=== PATIENT | male | born 1930 | race Caucasian/White ===

== ENCOUNTER → 2016-10-08 | Outpatient (REF) | payer OTHER ==
[~2016-10-08] MED LIST: *BLDWK2; *BLDWK8; *CXR; /MOXI40TA; ALBUTEROL INHALATION; ALLO100T; ALLOPUR100 PO; AMIO10TA; AMO500 PO; ASPI81TA3; ASPI81TA85 PO; ATEN25TA; ATENOL25 PO; COZAAR PO; COZAAR25 PO; DARVON-N1 PO; DIOVAN80 PO; DONETAB5 PO; DOXYCYC100; DOXYCYC100 PO; FLOMAX 0.4 PO; FURO1TAB15 PO; FUROSEM PO; K-TA1TAB PO; KEFLEX500; KLORCON20 PO; LACT10SO PO; LASI80TA; LASIX40 PO; LIPI20TA; LIPITOR10; LIPITOR40; NAME10TA PO; NITR0.4S; NITROSTAT4 SL; NYST10PW TOP; POTA20TA2; PROS5TAB; PROSCAR5 PO; RANITIDINE; RHINOAEROS NOSTRIL; SERT-138 PO; SIMV40TA2 PO; TEMOVATECR TOPICAL; TESSALO100 PO; TUSSI12TAB; TUSSIONEX; TYLE325T5 PO; ULTRAM50 PO; VALS80CA; VIAGRA50 PO; VITAMIN B 12; VITAMINB12 INJ; ZOCO40TA; ZOCOR40 PO; [UNRECOGNIZED DRUG - CODE] SUBQ; [UNRECOGNIZED DRUG - OTHER]; [UNRECOGNIZED DRUG - OTHER]; [UNRECOGNIZED DRUG - OTHER] SQ; [UNRECOGNIZED DRUG - OTHER] TOPICALLY
[2016-10-08 18:45] LABS: BASO % 0.5 % (0.0-1.0); EOS # 0.4 K/mm3 (0.0-0.50); EOS % 5.5 % (0.0-3.0); LARGE UNSTAINED CELL # 0.4 K/mm3 (0.0-0.4); LYMPH # 1.3 K/mm3 (1.5-4.5); LYMPH % 20.2 % (24.0-44.0); MEAN CORPUSCULAR HEMOGLOBIN 31.8 pg (27.0-33.0); MEAN CORPUSCULAR HGB CONC 32.6 g/dl (32.0-36.5); MEAN CORPUSCULAR VOLUME 97.5 fl (80.0-96.0); MONO # 0.5 K/mm3 (0.0-0.8); MONO % 7.9 % (0.0-5.0); NEUTROPHILS # 3.9 K/mm3 (1.8-7.7); NEUTROPHILS % 59.8 % (36.0-66.0); PLATELET COUNT, AUTOMATED 170 k/mm3 (150-450); RED CELL DISTRIBUTION WIDTH 12.5 % (11.5-14.5); WHITE BLOOD COUNT 6.5 K/mm3 (4.0-10.0)
[2016-10-08 18:56] LABS: FOLATE > 24.0 NG/ML (>5.4); VITAMIN B12 LEVEL 288 PG/ML (247-911)
== END ==
LOC: M LABNEURO 16:58
PROVIDERS: ATTEND Physician Assistant Medical
DX: R41.3 Other amnesia (principal); R41.0 Disorientation, unspecified

== ENCOUNTER → 2016-10-22 | Outpatient (CLI) | payer OTHER ==
--- NOTE | 2016-10-22 12:15 | REP ---
CT BRAIN WITHOUT CONTRAST: 10/22/2016 COMPARISON: 08/14/2015, 11/14/2013. CLINICAL HISTORY: Dementia. Confusion. Peripheral vascular disease. Pedicles are midline symmetric and dilated for those lateral ventricles. The third and fourth ventricles also prominent. There is extensive diffuse cerebral and cerebellar atrophy. Chronic small vessel white matter ischemic disease of aging noted. Anterior falcine calcifications are seen. There is an old lacunar infarct in the putamen of the left basal ganglia. I suspect a small lacunar infarct in the right thalamus inferiorly as well. No intra or extra-axial hemorrhage, mass or mass effect. No acute infarct. Brainstem and cerebellum show atrophy without hemorrhage or mass. Basal cisterns intact. Mastoids and sinuses are clear. There are few anterior ethmoid sinuses with mucosal thickening with the frontal and sphenoid sinuses clear. No fracture of the skull base or calvarium nor focal bone lesion. Advanced atherosclerotic calcifications in the carotid siphons. IMPRESSION: 1. Advanced diffuse atrophy with ventricular dilatation in proportion and with chronic small vessel ischemic changes throughout. No acute infarct, hemorrhage, mass or mass effect. 2. Vascular calcifications carotid siphons. Visualized sinuses show only minor ethmoid sinus mucosal thickening with the calvarium, skull base and mastoids intact. Signed by Tyron Miranda MD 10/22/2016 05:06 P
== END ==
LOC: M RAD 11:11
PROVIDERS: ATTEND Physician Assistant Medical
DX: I73.89 Other specified peripheral vascular diseases (principal); F02.80 Dementia in other diseases classified elsewhere, unspecified severity, without behavioral disturbance, psychotic disturbance, mood disturbance, and anxiety; G47.51 Confusional arousals; I67.82 Cerebral ischemia; G31.9 Degenerative disease of nervous system, unspecified

== ENCOUNTER 2016-11-04 08:49 | Emergency (ER) | payer OTHER ==
[2016-11-04] MEDS ORDERED: ACETAMINOPHEN 325 MG TAB As Ordered ONE ×2 (09:31→09:34)
[2016-11-04] MEDS ORDERED: ADACEL/BOOSTRIX VACCINE (DIPHTH/PERTUSS/ACELL/TETANUS)0.5ML SYR (90715) As Ordered ONE (09:32)
--- NOTE | 2016-11-04 10:23 | REP ---
CT HEAD WITHOUT CONTRAST: HISTORY: Head injury. COMPARISON: 10/22/2016. An area of decreased attentuation is present in the left basal ganglia. This represents an old lacunar infarction. Areas of decreased attentuation are present in the periventricular and subcortical white matter. This represents small vessel ischemic disease. There is no intraparenchymal hemorrhage, mass, or midline shift. The ventricular system and cortical sulci as well as subarachnoid space in the posterior fossa are dilated consistent with moderate volume loss. There is no extracerebral collection. There is no fracture. Minimal mucosal thickening is present in the left ethmoid sinus. IMPRESSION: 1. Old left basal ganglia lacunar infarction. 2. Small vessel ischemic disease. 3. Moderate volume loss. Signed by Lev Hebert MD 11/04/2016 10:29 A
--- NOTE | 2016-11-04 10:26 | REP ---
CT CERVICAL SPINE WITHOUT CONTRAST: HISTORY: Injury. There is no acute fracture. Disc bulges with associated osteophyte formation are present at the C3-4 through C6-7 levels. There are 2 mm of anterior subluxation of C6 on 7. There is minimal narrowing of the spinal canal. Uncinate process and/or facet hypertrophy are present at the C2-3 through C6-7 levels. These findings produce minimal to moderate narrowing of the neural foramina. The C2-3 through C7-T1 intervertebral discs are decreased in height consistent with disc degeneration. Anterior osteophytes are present throughout the cervical spine. IMPRESSION: 1. There is no acute fracture. 2. There is cervical spondylosis at the C1-2 through C7-T1 levels. Signed by Lev Hebert MD 11/04/2016 10:29 A
--- NOTE | 2016-11-04 10:48 | EDDOCDS ---
Physician Documentation [facility] Name: Germain Allen Age: 86 yrs Sex: Male : 1930 Arrival Date: 11/04/2016 Time: 08:49 Bed PD Private MD: Zechariah Tidwell Disposition: 11/04/16 10:16 Discharged to Home/Self Care. Impression: Fall from or off toilet, Superficial injury of head, Abrasion of scalp. - Condition is Stable. - Discharge Instructions: Abrasion, Fall Prevention and Home Safety. - Medication Reconciliation, Local Pharmacy Hours form. - Follow up: Emergency Department; When: As needed; Reason: Worsening of conditions. Follow up: Private Physician; When: 1 - 2 days; Reason: Wound/Symptom Recheck, Recheck today's complaints, Continuance of care. - Problem is new. - Symptoms are unchanged. - Notes: YOUR CT SCANS DID NOT SHOW ANY ACUTE INJURIES OR FRACTURES TODAY. PLEASE FOLLOW UP WITH YOUR PRIMARY CARE PROVIDER IN THE NEXT 1-2 DAYS TO RECHECK YOUR SYMPTOMS. YOU MAY TAKE TYLENOL DIRECTED FOR YOUR PAIN. RETURN TO THE ER WITH ANY WORSENING SYMPTOMS. Historical: - Allergies: no known allergies; - Home Meds: 1. furosemide 80 mg Oral tab 1 tab once daily 2. sertraline 100 mg oral tab 1 tab once daily 3. memantine 10 mg oral tab 1 tab 2 times per day 4. potassium chloride 20 mEq Oral TbER once daily 5. aspirin 81 mg Oral cpDR daily 6. simvastatin 40 mg Oral tab 1 tab in pm 7. donepezil 10 mg oral tab once daily 8. nitroglycerin 0.4 mg SL subl 1 tab every 5 minutes as needed 9. Doc-Q-Lax oral 1 tabs nightly - PMHx: Atrial Fib; CAD; CHF; Dementia; Gout; Hypercholesterolemia; - PSHx: CABG; FAVIO Knee Replacement; Pacemaker Insertion; - Social history: Smoking status: Patient states former smoker of tobacco. No barriers to communication noted, The patient speaks fluent Chinese, Speaks appropriately for age. - Family history: Not pertinent. - : The pt / caregiver states he / she is not on anticoagulants. Home medication list is obtained from the patient, family members. - Exposure Risk Screening:: None identified. Vital Signs: 11/04 09:04 BP 125 / 62; Pulse 60; Resp 16; Temp 97.2(TE); Pulse Ox 98% on R/A; Weight 89.81 kg / mlb1 198 lbs (R); Height 5 ft. 6 in. (167.64 cm) (R); Pain 10/10; 10:46 BP 163 / 82; Pulse 60; Resp 16; Temp 97.2(T); Pulse Ox 98% on R/A; Pain 6/10; mlb1 09:04 Body Mass Index 31.96 (89.81 kg, 167.64 cm) mlb1 MDM: 09:29 Tetanus- Diptheria-Acellular Pertussis 0.5 ml IM once; Routine booster 10-64yrs, >64 dt4 with child contact Fay Omnicell ordered. 09:29 Acetaminophen Tablet 650 mg PO once ordered. dt4 09:29 CT Head Without Contrast Ordered. EDMS 09:30 CT Spine,Cervical W/o Contrast Ordered. EDMS 09:49 Financial registration complete. mm15 09:53 [facility] Payment Agreement was scanned into [employer] and attached to record. mm15 Administered Medications: 09:36 Drug: Acetaminophen 650 mg [acetaminophen 325 mg tablet (2 tabs)] Route: PO; mlb1 09:57 Drug: Tetanus- Diptheria-Acellular Pertussis 0.5 ml [diphth,pertussis(acel),tetanus 2.5 mlb1 Lf unit-8 mcg-5 Lf/0.5mL IM syringe (0.5 mL)] {Belt Line Feeder: [employer]. Exp: 11/05/2018. Lot #: [id number]. } Route: IM; Site: left deltoid; Signatures: Dispatcher [employer] EDRaúl Tavarez RN RN mlb1 Nick Samuels mm15 Sirisha Obrien PA-C PAMichael dt4 The chart was reviewed and I authenticate all verbal orders and agree with the evaluation and treatment provided.Attachments: 09:53 [facility] Payment Agreement mm15 MTDD
--- NOTE | 2016-11-04 10:48 | EDDOCDS ---
Nurse's Notes [facility] Name: Germain Allen Age: 86 yrs Sex: Male : 1930 Arrival Date: 11/04/2016 Time: 08:49 Bed PD Private MD: Zechariah Tidwell Diagnosis: Fall from or off toilet;Superficial injury of head;Abrasion of scalp Presentation: 11/04 08:59 Presenting complaint: Patient states: States fell asleep and fell while on the toilet mlb1 yesterday hitting head against the wall c/o head and neck pain states pain "everywhere". Adult Sepsis Screening: The patient does not have new or worsening altered mentation. Patient's respiratory rate is less than 22. Systolic blood pressure is greater than 100. Patient has a qSOFA score of 0- Negative Sepsis Screen. Suicide/Homicide risk assessment- the patient denies having any suicidal and/or homicidal ideations and does not present with any other emotional, behavioral or mental health complaints. Status: Patient is not a emergency services director or dependent. Transition of care: patient was not received from another setting of care. 08:59 Acuity: AFIA Level 4 mlb1 08:59 Method Of Arrival: Walkin/Carried/Asstd mlb1 Triage Assessment: 09:03 General: Appears in no apparent distress, Behavior is anxious, cooperative. Pain: mlb1 Location: occiput, left mid cervical area and right mid cervical area Pain currently is 10 out of 10 on a pain scale. Neurological: Level of Consciousness is awake, alert, Oriented to person, place, time. Historical: - Allergies: no known allergies; - Home Meds: 1. furosemide 80 mg Oral tab 1 tab once daily 2. sertraline 100 mg oral tab 1 tab once daily 3. memantine 10 mg oral tab 1 tab 2 times per day 4. potassium chloride 20 mEq Oral TbER once daily 5. aspirin 81 mg Oral cpDR daily 6. simvastatin 40 mg Oral tab 1 tab in pm 7. donepezil 10 mg oral tab once daily 8. nitroglycerin 0.4 mg SL subl 1 tab every 5 minutes as needed 9. Doc-Q-Lax oral 1 tabs nightly - PMHx: Atrial Fib; CAD; CHF; Dementia; Gout; Hypercholesterolemia; - PSHx: CABG; FAVIO Knee Replacement; Pacemaker Insertion; - Social history: Smoking status: Patient states former smoker of tobacco. No barriers to communication noted, The patient speaks fluent Tuvaluan, Speaks appropriately for age. - Family history: Not pertinent. - : The pt / caregiver states he / she is not on anticoagulants. Home medication list is obtained from the patient, family members. - Exposure Risk Screening:: None identified. Screenin:02 Screening information is obtained from the patient. Fall risk: At risk due to age, The mlb1 following interventions are performed due to a positive Fall Risk Screen: Fall Risk is added to Special Handling on the patient Summary Screen. A Fall Risk Bracelet was applied to the patient. Side Rails are placed in the up position. A Call Bautista is given with instruction to call for help when getting out of bed. Fall Alert bracelet is placed on the patient. Assistance ADL's: requires no assistance with activities of daily living. Abuse/DV Screen: The patient / caregiver reports he/she is: not in a situation that causes fear, pain or injury. Nutritional screening: No deficits noted. Advance Directives: There is no active DNR order. home support is adequate. Assessment: 10:03 General: Appears in no apparent distress, Behavior is anxious, appropriate for age, mlb1 cooperative. Pain: Location: right mid cervical area and left mid cervical area and occiput Pain currently is 10 out of 10 on a pain scale. Neurological: Level of Consciousness is awake, alert, Oriented to person, place, time. Musculoskeletal: Circulation, motion, and sensation intact Range of motion intact in all extremities. 10:46 General: Appears in no apparent distress, Behavior is appropriate for age, cooperative. mlb1 Pain: Location: right mid cervical area and left mid cervical area and occiput and back of neck Pain currently is 6 out of 10 on a pain scale. Neurological: No deficits noted. Respiratory: No deficits noted. Musculoskeletal: No deficits noted. Vital Signs: 09:04 BP 125 / 62; Pulse 60; Resp 16; Temp 97.2(TE); Pulse Ox 98% on R/A; Weight 89.81 kg mlb1 (R); Height 5 ft. 6 in. (167.64 cm) (R); Pain 10/10; 10:46 BP 163 / 82; Pulse 60; Resp 16; Temp 97.2(T); Pulse Ox 98% on R/A; Pain 6/10; mlb1 09:04 Body Mass Index 31.96 (89.81 kg, 167.64 cm) mlb1 Vitals: 09:04 Log In Time: November 04, 2016 at 08:47. mlb1 ED Course: 08:50 Patient visited by Nick Samuels. mm15 08:50 Patient moved to Waiting mm15 08:51 Zechariah Tidwell MD is Private Physician. mm15 08:58 Patient visited by Raúl Whitney RN. mlb1 09:00 Triage Initiated mlb1 09:03 Patient moved to Triage 1 ttb 09:05 Patient visited by Raúl Whitney, BLANCA. mlb1 09:14 Sir[facility] Obrien [facility]. dt4 09:14 Bandar Brush MD is Attending Physician. dt4 09:14 Patient visited by Sirisha Obrien PA-C. dt4 09:27 Patient moved to PD mlb1 09:53 [facility] Payment Agreement was scanned into [employer] and attached to record. mm15 10:03 Patient visited by Raúl Whitney RN. mlb1 10:03 No procedures done that require assistance. mlb1 10:47 Patient visited by Raúl Whitney RN. mlb1 10:47 The patient / caregiver is instructed regarding the plan of care and ED course. mlb1 10:47 No IV's were initiated during this patient's visit. mlb1 Administered Medications: 09:36 Drug: Acetaminophen 650 mg [acetaminophen 325 mg tablet (2 tabs)] Route: PO; mlb1 09:57 Drug: Tetanus- Diptheria-Acellular Pertussis 0.5 ml [diphth,pertussis(acel),tetanus 2.5 mlb1 Lf unit-8 mcg-5 Lf/0.5mL IM syringe (0.5 mL)] {Financial Analyst: [employer]. Exp: 11/05/2018. Lot #: [id number]. } Route: IM; Site: left deltoid; Order Results: There are currently no results for this order. Outcome: 10:02 CT Study completed. mlb1 10:16 Discharge ordered by Provider. dt4 10:46 Discharge Assessment: Patient awake, alert and oriented x 3. No cognitive and/or mlb1 functional deficits noted. Patient verbalized understanding of disposition instructions. patient administered narcotics - no. The following High Risk Discharge criteria are identified: None. Discharged to home ambulatory. Condition: good. Discharge instructions given to patient, Instructed on discharge instructions, follow up and referral plans. medication usage, Demonstrated understanding of instructions, medications, Pt was receptive of discharge instructions/ teaching. Property sent home with patient. 10:47 Patient left the ED. mlb1 Signatures: Raúl Whitney RN RN mlb1 Effie Cline RN RN ttb Nick Samuels mm15 Sirisha Obrien PA-Niki PA-C dt4 MTDD
--- NOTE | 2016-11-06 11:48 | EDDOCDS ---
Nurse's Notes [facility] Name: Germain Allen Age: 86 yrs Sex: Male : 1930 Arrival Date: 11/04/2016 Time: 08:49 Bed PD Private MD: Zechariah Tidwell Diagnosis: Fall from or off toilet;Superficial injury of head;Abrasion of scalp Presentation: 11/04 08:59 Presenting complaint: Patient states: States fell asleep and fell while on the toilet mlb1 yesterday hitting head against the wall c/o head and neck pain states pain "everywhere". Adult Sepsis Screening: The patient does not have new or worsening altered mentation. Patient's respiratory rate is less than 22. Systolic blood pressure is greater than 100. Patient has a qSOFA score of 0- Negative Sepsis Screen. Suicide/Homicide risk assessment- the patient denies having any suicidal and/or homicidal ideations and does not present with any other emotional, behavioral or mental health complaints. Status: Patient is not a corporate services manager or dependent. Transition of care: patient was not received from another setting of care. 08:59 Acuity: AFIA Level 4 mlb1 08:59 Method Of Arrival: Walkin/Carried/Asstd mlb1 Triage Assessment: 09:03 General: Appears in no apparent distress, Behavior is anxious, cooperative. Pain: mlb1 Location: occiput, left mid cervical area and right mid cervical area Pain currently is 10 out of 10 on a pain scale. Neurological: Level of Consciousness is awake, alert, Oriented to person, place, time. Historical: - Allergies: no known allergies; - Home Meds: 1. furosemide 80 mg Oral tab 1 tab once daily 2. sertraline 100 mg oral tab 1 tab once daily 3. memantine 10 mg oral tab 1 tab 2 times per day 4. potassium chloride 20 mEq Oral TbER once daily 5. aspirin 81 mg Oral cpDR daily 6. simvastatin 40 mg Oral tab 1 tab in pm 7. donepezil 10 mg oral tab once daily 8. nitroglycerin 0.4 mg SL subl 1 tab every 5 minutes as needed 9. Doc-Q-Lax oral 1 tabs nightly - PMHx: Atrial Fib; CAD; CHF; Dementia; Gout; Hypercholesterolemia; - PSHx: CABG; FAVIO Knee Replacement; Pacemaker Insertion; - Social history: Smoking status: Patient states former smoker of tobacco. No barriers to communication noted, The patient speaks fluent Montenegrin, Speaks appropriately for age. - Family history: Not pertinent. - : The pt / caregiver states he / she is not on anticoagulants. Home medication list is obtained from the patient, family members. - Exposure Risk Screening:: None identified. Screenin:02 Screening information is obtained from the patient. Fall risk: At risk due to age, The mlb1 following interventions are performed due to a positive Fall Risk Screen: Fall Risk is added to Special Handling on the patient Summary Screen. A Fall Risk Bracelet was applied to the patient. Side Rails are placed in the up position. A Call Bautista is given with instruction to call for help when getting out of bed. Fall Alert bracelet is placed on the patient. Assistance ADL's: requires no assistance with activities of daily living. Abuse/DV Screen: The patient / caregiver reports he/she is: not in a situation that causes fear, pain or injury. Nutritional screening: No deficits noted. Advance Directives: There is no active DNR order. home support is adequate. Assessment: 10:03 General: Appears in no apparent distress, Behavior is anxious, appropriate for age, mlb1 cooperative. Pain: Location: right mid cervical area and left mid cervical area and occiput Pain currently is 10 out of 10 on a pain scale. Neurological: Level of Consciousness is awake, alert, Oriented to person, place, time. Musculoskeletal: Circulation, motion, and sensation intact Range of motion intact in all extremities. 10:46 General: Appears in no apparent distress, Behavior is appropriate for age, cooperative. mlb1 Pain: Location: right mid cervical area and left mid cervical area and occiput and back of neck Pain currently is 6 out of 10 on a pain scale. Neurological: No deficits noted. Respiratory: No deficits noted. Musculoskeletal: No deficits noted. Vital Signs: 09:04 BP 125 / 62; Pulse 60; Resp 16; Temp 97.2(TE); Pulse Ox 98% on R/A; Weight 89.81 kg mlb1 (R); Height 5 ft. 6 in. (167.64 cm) (R); Pain 10/10; 10:46 BP 163 / 82; Pulse 60; Resp 16; Temp 97.2(T); Pulse Ox 98% on R/A; Pain 6/10; mlb1 09:04 Body Mass Index 31.96 (89.81 kg, 167.64 cm) mlb1 Vitals: 09:04 Log In Time: November 04, 2016 at 08:47. mlb1 ED Course: 08:50 Patient visited by Nick Samuels. mm15 08:50 Patient moved to Waiting mm15 08:51 Zechariah Tidwell MD is Private Physician. mm15 08:58 Patient visited by Raúl Whitney, BLANCA. mlb1 09:00 Triage Initiated mlb1 09:03 Patient moved to Triage 1 ttb 09:05 Patient visited by Raúl Whitney, BLANCA. mlb1 09:14 Sirisha Obrien PA-C is [facility]. dt4 09:14 Bandar Brush MD is Attending Physician. dt4 09:14 Patient visited by Sirisha Obrien PA-C. dt4 09:27 Patient moved to PD mlb1 09:53 [facility] Payment Agreement was scanned into [employer] and attached to record. mm15 10:03 Patient visited by Raúl Whitney, BLANCA. mlb1 10:03 No procedures done that require assistance. mlb1 10:47 Patient visited by Raúl Whitney RN. mlb1 10:47 The patient / caregiver is instructed regarding the plan of care and ED course. mlb1 10:47 No IV's were initiated during this patient's visit. mlb1 10:49 CT Head Without Contrast Returned. EDMS 10:49 CT Spine,Cervical W/o Contrast Returned. EDMS 12:45 T-Sheet-- Draft Copy was scanned into [employer] and attached to record. klr 15:20 Radiology Report was scanned into [employer] and attached to record. gb Administered Medications: 09:36 Drug: Acetaminophen 650 mg [acetaminophen 325 mg tablet (2 tabs)] Route: PO; mlb1 09:57 Drug: Tetanus- Diptheria-Acellular Pertussis 0.5 ml [diphth,pertussis(acel),tetanus 2.5 mlb1 Lf unit-8 mcg-5 Lf/0.5mL IM syringe (0.5 mL)] {Manager Community Development: [employer]. Exp: 11/05/2018. Lot #: [id number]. } Route: IM; Site: left deltoid; Order Results: Radiology Order: CT Head Without Contrast Test: CT Head Without Contrast REASON FOR EXAMINATION: fall, head injury; CT HEAD WITHOUT CONTRAST:; ; HISTORY: Head injury.; ; COMPARISON: 10/22/2016.; ; An area of decreased attentuation is present in the left basal ganglia. This; represents an old lacunar infarction. Areas of decreased attentuation are; present in the periventricular and subcortical white matter. This represents; small vessel ischemic disease. There is no intraparenchymal hemorrhage, mass, or; midline shift. The ventricular system and cortical sulci as well as subarachnoid; space in the posterior fossa are dilated consistent with moderate volume loss.; There is no extracerebral collection. There is no fracture. Minimal mucosal; thickening is present in the left ethmoid sinus.; ; IMPRESSION:; ; 1. Old left basal ganglia lacunar infarction.; ; 2. Small vessel ischemic disease.; ; 3. Moderate volume loss.; ; ; Signed by; Lev Hebert MD 11/04/2016 10:29 A; Radiology Order: CT Spine,Cervical W/o Contrast Test: CT Spine,Cervical W/o Contrast REASON FOR EXAMINATION: fall, head/neck injury; CT CERVICAL SPINE WITHOUT CONTRAST:; ; HISTORY: Injury.; ; There is no acute fracture. Disc bulges with associated osteophyte formation are; present at the C3-4 through C6-7 levels. There are 2 mm of anterior subluxation; of C6 on 7. There is minimal narrowing of the spinal canal. Uncinate process; and/or facet hypertrophy are present at the C2-3 through C6-7 levels. These; findings produce minimal to moderate narrowing of the neural foramina. The C2-3; through C7-T1 intervertebral discs are decreased in height consistent with disc; degeneration. Anterior osteophytes are present throughout the cervical spine.; ; IMPRESSION:; ; 1. There is no acute fracture.; ; 2. There is cervical spondylosis at the C1-2 through C7-T1 levels.; ; ; Signed by; Lev Hebert MD 11/04/2016 10:29 A; Outcome: 10:02 CT Study completed. mlb1 10:16 Discharge ordered by Provider. dt4 10:46 Discharge Assessment: Patient awake, alert and oriented x 3. No cognitive and/or mlb1 functional deficits noted. Patient verbalized understanding of disposition instructions. patient administered narcotics - no. The following High Risk Discharge criteria are identified: None. Discharged to home ambulatory. Condition: good. Discharge instructions given to patient, Instructed on discharge instructions, follow up and referral plans. medication usage, Demonstrated understanding of instructions, medications, Pt was receptive of discharge instructions/ teaching. Property sent home with patient. 10:47 Patient left the ED. mlb1 Signatures: Dispatcher [employer] EDIA Annemarie Chavez, Reg Reg gb Raúl Whitney RN RN mlb1 Effie Cline RN RN Nick Robledo mm15 Sirisha Obrien PA-C PA-C dt4 Arcelia Acuña Chart Complete HOLLI
--- NOTE | 2016-11-06 11:48 | EDDOCDS ---
Physician Documentation [facility] Name: Germain Allen Age: 86 yrs Sex: Male : 1930 Arrival Date: 11/04/2016 Time: 08:49 Bed PD Private MD: Zechariah Tidwell Disposition: 11/04/16 10:16 Discharged to Home/Self Care. Impression: Fall from or off toilet, Superficial injury of head, Abrasion of scalp. - Condition is Stable. - Discharge Instructions: Abrasion, Fall Prevention and Home Safety. - Medication Reconciliation, Local Pharmacy Hours form. - Follow up: Emergency Department; When: As needed; Reason: Worsening of conditions. Follow up: Private Physician; When: 1 - 2 days; Reason: Wound/Symptom Recheck, Recheck today's complaints, Continuance of care. - Problem is new. - Symptoms are unchanged. - Notes: YOUR CT SCANS DID NOT SHOW ANY ACUTE INJURIES OR FRACTURES TODAY. PLEASE FOLLOW UP WITH YOUR PRIMARY CARE PROVIDER IN THE NEXT 1-2 DAYS TO RECHECK YOUR SYMPTOMS. YOU MAY TAKE TYLENOL DIRECTED FOR YOUR PAIN. RETURN TO THE ER WITH ANY WORSENING SYMPTOMS. Historical: - Allergies: no known allergies; - Home Meds: 1. furosemide 80 mg Oral tab 1 tab once daily 2. sertraline 100 mg oral tab 1 tab once daily 3. memantine 10 mg oral tab 1 tab 2 times per day 4. potassium chloride 20 mEq Oral TbER once daily 5. aspirin 81 mg Oral cpDR daily 6. simvastatin 40 mg Oral tab 1 tab in pm 7. donepezil 10 mg oral tab once daily 8. nitroglycerin 0.4 mg SL subl 1 tab every 5 minutes as needed 9. Doc-Q-Lax oral 1 tabs nightly - PMHx: Atrial Fib; CAD; CHF; Dementia; Gout; Hypercholesterolemia; - PSHx: CABG; FAVIO Knee Replacement; Pacemaker Insertion; - Social history: Smoking status: Patient states former smoker of tobacco. No barriers to communication noted, The patient speaks fluent Serbian, Speaks appropriately for age. - Family history: Not pertinent. - : The pt / caregiver states he / she is not on anticoagulants. Home medication list is obtained from the patient, family members. - Exposure Risk Screening:: None identified. Vital Signs: 11/04 09:04 BP 125 / 62; Pulse 60; Resp 16; Temp 97.2(TE); Pulse Ox 98% on R/A; Weight 89.81 kg / mlb1 198 lbs (R); Height 5 ft. 6 in. (167.64 cm) (R); Pain 10/10; 10:46 BP 163 / 82; Pulse 60; Resp 16; Temp 97.2(T); Pulse Ox 98% on R/A; Pain 6/10; mlb1 09:04 Body Mass Index 31.96 (89.81 kg, 167.64 cm) mlb1 MDM: 09:29 Tetanus- Diptheria-Acellular Pertussis 0.5 ml IM once; Routine booster 10-64yrs, >64 dt4 with child contact [place] ordered. 09:29 Acetaminophen Tablet 650 mg PO once ordered. dt4 09:29 CT Head Without Contrast Ordered. EDMS 09:30 CT Spine,Cervical W/o Contrast Ordered. EDMS 09:49 Financial registration complete. mm15 09:53 [facility] Payment Agreement was scanned into [employer] and attached to record. mm15 12:45 T-Sheet-- Draft Copy was scanned into [employer] and attached to record. klr 15:20 Radiology Report was scanned into [employer] and attached to record. gb Administered Medications: 09:36 Drug: Acetaminophen 650 mg [acetaminophen 325 mg tablet (2 tabs)] Route: PO; mlb1 09:57 Drug: Tetanus- Diptheria-Acellular Pertussis 0.5 ml [diphth,pertussis(acel),tetanus 2.5 mlb1 Lf unit-8 mcg-5 Lf/0.5mL IM syringe (0.5 mL)] {[employer] Law Clerk: [place]. Exp: 11/05/2018. Lot #: [id number]. } Route: IM; Site: left deltoid; Signatures: Dispatcher [employer] EDRI Annemarie Chavez, Reg Reg gb Raúl Whitney RN RN mlb1 Nick Samuels mm15 Sirisha Obrien PA-C PA-C dt4 Arcelia Acuña The chart was reviewed and I authenticate all verbal orders and agree with the evaluation and treatment provided.Attachments: 09:53 [facility] Payment Agreement mm15 12:45 T-Sheet-- Draft Copy klr Chart Complete MTDD
--- NOTE | 2016-11-06 11:48 | EDDOCDS ---
Physician Documentation [facility] Name: Germain Allen Age: 86 yrs Sex: Male : 1930 Arrival Date: 11/04/2016 Time: 08:49 [address] PD Private MD: Zechariah Tidwell Disposition: 11/04/16 10:16 Discharged to Home/Self Care. Impression: Fall from or off toilet, Superficial injury of head, Abrasion of scalp. - Condition is Stable. - Discharge Instructions: Abrasion, Fall Prevention and Home Safety. - Medication Reconciliation, Local Pharmacy Hours form. - Follow up: Emergency Department; When: As needed; Reason: Worsening of conditions. Follow up: Private Physician; When: 1 - 2 days; Reason: Wound/Symptom Recheck, Recheck today's complaints, Continuance of care. - Problem is new. - Symptoms are unchanged. - Notes: YOUR CT SCANS DID NOT SHOW ANY ACUTE INJURIES OR FRACTURES TODAY. PLEASE FOLLOW UP WITH YOUR PRIMARY CARE PROVIDER IN THE NEXT 1-2 DAYS TO RECHECK YOUR SYMPTOMS. YOU MAY TAKE TYLENOL DIRECTED FOR YOUR PAIN. RETURN TO THE ER WITH ANY WORSENING SYMPTOMS. Historical: - Allergies: no known allergies; - Home Meds: 1. furosemide 80 mg Oral tab 1 tab once daily 2. sertraline 100 mg oral tab 1 tab once daily 3. memantine 10 mg oral tab 1 tab 2 times per day 4. potassium chloride 20 mEq Oral TbER once daily 5. aspirin 81 mg Oral cpDR daily 6. simvastatin 40 mg Oral tab 1 tab in pm 7. donepezil 10 mg oral tab once daily 8. nitroglycerin 0.4 mg SL subl 1 tab every 5 minutes as needed 9. Doc-Q-Lax oral 1 tabs nightly - PMHx: Atrial Fib; CAD; CHF; Dementia; Gout; Hypercholesterolemia; - PSHx: CABG; FAVIO Knee Replacement; Pacemaker Insertion; - Social history: Smoking status: Patient states former smoker of tobacco. No barriers to communication noted, The patient speaks fluent Croatian, Speaks appropriately for age. - Family history: Not pertinent. - : The pt / caregiver states he / she is not on anticoagulants. Home medication list is obtained from the patient, family members. - Exposure Risk Screening:: None identified. Vital Signs: 11/04 09:04 BP 125 / 62; Pulse 60; Resp 16; Temp 97.2(TE); Pulse Ox 98% on R/A; Weight 89.81 kg / mlb1 198 lbs (R); Height 5 ft. 6 in. (167.64 cm) (R); Pain 10/10; 10:46 BP 163 / 82; Pulse 60; Resp 16; Temp 97.2(T); Pulse Ox 98% on R/A; Pain 6/10; mlb1 09:04 Body Mass Index 31.96 (89.81 kg, 167.64 cm) mlb1 MDM: 09:29 Tetanus- Diptheria-Acellular Pertussis 0.5 ml IM once; Routine booster 10-64yrs, >64 dt4 with child contact [place] [employer] ordered. 09:29 Acetaminophen Tablet 650 mg PO once ordered. dt4 09:29 CT Head Without Contrast Ordered. EDMS 09:30 CT Spine,Cervical W/o Contrast Ordered. EDMS 09:49 Financial registration complete. mm15 09:53 [facility] Payment Agreement was scanned into [employer] and attached to record. mm15 12:45 T-Sheet-- Draft Copy was scanned into [employer] and attached to record. klr 15:20 Radiology Report was scanned into [employer] and attached to record. gb Administered Medications: 09:36 Drug: Acetaminophen 650 mg [acetaminophen 325 mg tablet (2 tabs)] Route: PO; mlb1 09:57 Drug: Tetanus- Diptheria-Acellular Pertussis 0.5 ml [diphth,pertussis(acel),tetanus 2.5 mlb1 Lf unit-8 mcg-5 Lf/0.5mL IM syringe (0.5 mL)] {Paper Control Clerk: [employer]. Exp: 11/05/2018. Lot #: [id number]. } Route: IM; Site: left deltoid; Signatures: Dispatcher [employer] EDMO Annemarie Chavez, Reg Reg gb Raúl Whitney RN RN mlb1 Nick Samuels mm15 Sirisha Obrien PA-C PA-C dt4 Arcelia Acuña The chart was reviewed and I authenticate all verbal orders and agree with the evaluation and treatment provided.Attachments: 09:53 [facility] Payment Agreement mm15 12:45 T-Sheet-- Draft Copy klr Chart Complete MTDD
== END 2016-11-04 10:47 | disposition home or self-care (01) ==
LOC: M ED 08:49
DX: S00.90XA Unspecified superficial injury of unspecified part of head, initial encounter (principal); S00.01XA Abrasion of scalp, initial encounter; W18.11XA Fall from or off toilet without subsequent striking against object, initial encounter; Y92.019 Unspecified place in single-family (private) house as the place of occurrence of the external cause; Y93.89 Activity, other specified; Y99.9 Unspecified external cause status; I48.91 Unspecified atrial fibrillation; I25.10 Atherosclerotic heart disease of native coronary artery without angina pectoris; I50.9 Heart failure, unspecified; F03.90 Unspecified dementia, unspecified severity, without behavioral disturbance, psychotic disturbance, mood disturbance, and anxiety; M10.9 Gout, unspecified; E78.00 Pure hypercholesterolemia, unspecified; Z95.1 Presence of aortocoronary bypass graft; Z95.0 Presence of cardiac pacemaker; Z96.651 Presence of right artificial knee joint; Z96.652 Presence of left artificial knee joint; Z87.891 Personal history of nicotine dependence; Z79.82 Long term (current) use of aspirin; Z79.899 Other long term (current) drug therapy

== ENCOUNTER → 2016-11-12 | Outpatient (CLI) | payer OTHER ==
--- NOTE | 2016-11-12 12:18 | REP ---
Clinical: Acute cough . Comparison: 05/29/2016 . Technique: PA and lateral. Findings: The mediastinum and cardiac silhouette are stable with prior sternotomy and pacemaker. The lung james are clear and without acute consolidation, effusion, or pneumothorax. The skeletal structures are intact and normal. Impression: 1. No acute cardiopulmonary process. Signed by Gigi Barber MD 11/12/2016 12:09 P
== END ==
LOC: M LRY 11:13
PROVIDERS: ATTEND Nurse Practitioner Family
DX: R05 Cough (principal)
CPT/HCPCS: 71020; 93005; G0463

== ENCOUNTER → 2016-11-16 | Outpatient (REF) | payer OTHER ==
[2016-11-16 16:58] LABS: ALBUMIN 3.8 GM/DL (3.2-5.2); ALBUMIN/GLOBULIN RATIO 1.41 (1.00-1.93); BILIRUBIN,TOTAL 0.5 MG/DL (0.2-1.0); CALCIUM LEVEL 8.9 MG/DL (8.8-10.2); CREATININE FOR GFR 1.38 MG/DL (0.70-1.30); GLOMERULAR FILTRATION RATE 52.3 (>35); TOTAL PROTEIN 6.5 GM/DL (6.4-8.2)
== END ==
LOC: M SFHCLERA 10:12
PROVIDERS: ATTEND Nurse Practitioner Family
DX: I50.32 Chronic diastolic (congestive) heart failure (principal); F03.90 Unspecified dementia, unspecified severity, without behavioral disturbance, psychotic disturbance, mood disturbance, and anxiety; E11.9 Type 2 diabetes mellitus without complications

== ENCOUNTER → 2017-03-12 | Outpatient (REF) | payer OTHER ==
[~2017-03-12] MED LIST changes: -FURO1TAB15 PO; +FURO80TA2 PO; +MEMA1TAB2
[2017-03-12 13:27] LABS: BASO % 0.5 % (0.0-1.0); EOS # 0.3 K/mm3 (0.0-0.50); EOS % 5.3 % (0.0-3.0); LARGE UNSTAINED CELL # 0.3 K/mm3 (0.0-0.4); LYMPH # 1.6 K/mm3 (1.5-4.5); LYMPH % 21.7 % (24.0-44.0); MEAN CORPUSCULAR HEMOGLOBIN 32.5 pg (27.0-33.0); MEAN CORPUSCULAR HGB CONC 33.1 g/dl (32.0-36.5); MEAN CORPUSCULAR VOLUME 98.2 fl (80.0-96.0); MONO # 0.7 K/mm3 (0.0-0.8); MONO % 10.4 % (0.0-5.0); NEUTROPHILS # 3.5 K/mm3 (1.8-7.7); NEUTROPHILS % 57.1 % (36.0-66.0); PLATELET COUNT, AUTOMATED 168 k/mm3 (150-450); RED CELL DISTRIBUTION WIDTH 12.8 % (11.5-14.5); WHITE BLOOD COUNT 6.2 K/mm3 (4.0-10.0)
[2017-03-12 14:09] LABS: VITAMIN B12 LEVEL 224 PG/ML (247-911)
[2017-03-12 14:34] LABS: ALBUMIN 3.9 GM/DL (3.2-5.2); ALKALINE PHOSPHATASE 152 U/L (45-117); ALT/SGPT 23 U/L (12-78); ANION GAP 8 MEQ/L (8-16); AST/SGOT 24 U/L (15-37); BILIRUBIN,TOTAL 0.5 MG/DL (0.2-1.0); BLOOD UREA NITROGEN 22 MG/DL (7-18); CALCIUM LEVEL 8.9 MG/DL (8.8-10.2); CARBON DIOXIDE LEVEL 30 MEQ/L (21-32); CHLORIDE LEVEL 107 MEQ/L (98-107); CREATININE FOR GFR 1.13 MG/DL (0.70-1.30); GLOMERULAR FILTRATION RATE > 60.0 (>35); GLUCOSE, FASTING 69 MG/DL (83-110); POTASSIUM SERUM 4.3 MEQ/L (3.5-5.1); SODIUM LEVEL 145 MEQ/L (136-145); TOTAL PROTEIN 6.9 GM/DL (6.4-8.2)
== END ==
LOC: M SFHCPLAZ 10:59
PROVIDERS: ATTEND Nurse Practitioner Family
DX: D51.9 Vitamin B12 deficiency anemia, unspecified (principal); I10 Essential (primary) hypertension
CPT/HCPCS: 36415; 80053; 82607; 85025; G0463

== ENCOUNTER → 2017-05-03 | Outpatient (CLI) | payer OTHER ==
[2017-05-03 12:36] LABS: ALBUMIN 4.1 GM/DL (3.2-5.2); ANION GAP 6 MEQ/L (8-16); BLOOD UREA NITROGEN 22 MG/DL (7-18); CALCIUM LEVEL 9.2 MG/DL (8.8-10.2); CARBON DIOXIDE LEVEL 32 MEQ/L (21-32); CHLORIDE LEVEL 107 MEQ/L (98-107); CREATININE FOR GFR 1.09 MG/DL (0.70-1.30); GLOMERULAR FILTRATION RATE > 60.0 (>35); GLUCOSE, FASTING 68 MG/DL (83-110); PHOSPHORUS LEVEL 3.2 MG/DL (2.5-4.9); POTASSIUM SERUM 4.1 MEQ/L (3.5-5.1); SODIUM LEVEL 145 MEQ/L (136-145)
== END ==
LOC: M LRY 10:02
PROVIDERS: ATTEND Physician Assistant
DX: I50.32 Chronic diastolic (congestive) heart failure (principal)

== ENCOUNTER 2017-06-22 15:47 | Emergency (ER) | payer OTHER ==
[~2017-06-22] VITALS: Ht 170.2 cm; Wt 92.2 kg
[~2017-06-22 15:47] MED LIST changes: -MEMA1TAB2
[2017-06-22] MEDS ORDERED: ONDANSETRON 4MG/2ML VIAL (J2405) IV ONE (16:15)
[2017-06-22 16:46] LABS: BASO % 0.7 % (0.0-1.0); EOS # 0.3 10^3/uL (0.0-0.50); EOS % 5.1 % (0.0-3.0); IMMATURE GRANULOCYTE % 0.5 % (0-0); LYMPH # 1.4 10^3/uL (1.5-4.5); LYMPH % 23.6 % (24.0-44.0); MEAN CORPUSCULAR HEMOGLOBIN 32.2 pg (27.0-33.0); MEAN CORPUSCULAR VOLUME 97.6 fl (80.0-96.0); MONO # 0.8 10^3/uL (0.0-0.8); MONO % 12.5 % (0.0-5.0); NEUTROPHILS # 3.5 10^3/uL (1.8-7.7); NEUTROPHILS % 57.6 % (36.0-66.0); PLATELET COUNT, AUTOMATED 156 10^3/uL (150-450); RED CELL DISTRIBUTION WIDTH 13.8 % (11.5-14.5); WHITE BLOOD COUNT 6.1 10^3/uL (4.0-10.0)
[2017-06-22 16:49] LABS: ADD MORPHOLOGY? NO
[2017-06-22 16:53] LABS: INR 0.94
[2017-06-22 17:00] LABS: ALBUMIN 4.1 GM/DL (3.2-5.2); ALBUMIN/GLOBULIN RATIO 1.21 (1.00-1.93); ALKALINE PHOSPHATASE 133 U/L (45-117); ALT/SGPT 30 U/L (12-78); ANION GAP 6 MEQ/L (8-16); AST/SGOT 35 U/L (15-37); BILIRUBIN,DIRECT 0.1 MG/DL (0.0-0.2); BILIRUBIN,TOTAL 0.6 MG/DL (0.2-1.0); BLOOD UREA NITROGEN 22 MG/DL (7-18); CALCIUM LEVEL 8.9 MG/DL (8.8-10.2); CARBON DIOXIDE LEVEL 29 MEQ/L (21-32); CHLORIDE LEVEL 106 MEQ/L (98-107); CREATININE FOR GFR 1.16 MG/DL (0.70-1.30); GLOMERULAR FILTRATION RATE > 60.0 (>35); GLUCOSE, FASTING 87 MG/DL (83-110); POTASSIUM SERUM 4.1 MEQ/L (3.5-5.1); SODIUM LEVEL 141 MEQ/L (136-145); TOTAL PROTEIN 7.5 GM/DL (6.4-8.2)
[2017-06-22] MEDS ORDERED: ISOVUE-370 76% 100ML VIAL (Q9967) As Ordered ONE (17:28)
--- NOTE | 2017-06-22 18:24 | REP ---
CT of the abdomen and pelvis with IV contrast, without bowel contrast: There are no comparisons. The visualized lung james are unremarkable. The hepatic parenchyma is homogeneous. The gallbladder is unremarkable. The pancreas is unremarkable. The spleen is normal size. There are splenic calcified granulomas. The spleen is otherwise unremarkable. The adrenals are unremarkable. There are multiple bilateral renal cortical cysts, largest is on the right measuring 4.9 cm. No solid renal masses. No hydronephrosis. The abdominal aorta is unremarkable except for calcified atheroma. There is no retroperitoneal mass or adenopathy. There is no bowel distension or obstruction. There is no ascites. Pelvis: The appendix has a normal appearance. The bladder is unremarkable. There is no adenopathy or ascites. There is bilateral sacroiliac and hip osteoarthritis. There is multilevel degenerative disc disease in the lumbar or spine. Impression: No ascites, adenopathy, mass or inflammation. No bowel distension or obstruction. No abdominal aortic aneurysm. There are multiple bilateral renal cortical cysts. 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 Signed by Jose Khanna MD 06/22/2017 06:15 P
[2017-06-22] MEDS ORDERED: hydrALAZINE INJ 20 MG/ML VIAL IV STA (18:41)
[2017-06-22] MEDS ORDERED: MEMA1TAB2 (18:49)
[2017-06-22 19:42] VITALS: BP 174/79
--- NOTE | 2017-06-23 06:26 | ECGEPIP ---
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
== END 2017-06-22 20:27 | disposition home or self-care (01) ==
LOC: EDBD 15:47 → M ED 15:47
DX: R41.0 Disorientation, unspecified (principal); I50.9 Heart failure, unspecified; I11.0 Hypertensive heart disease with heart failure; N40.0 Benign prostatic hyperplasia without lower urinary tract symptoms; F33.9 Major depressive disorder, recurrent, unspecified; M48.00 Spinal stenosis, site unspecified; F03.90 Unspecified dementia, unspecified severity, without behavioral disturbance, psychotic disturbance, mood disturbance, and anxiety; Z79.82 Long term (current) use of aspirin; Z79.899 Other long term (current) drug therapy; Z88.8 Allergy status to other drugs, medicaments and biological substances; Z95.0 Presence of cardiac pacemaker; Z95.1 Presence of aortocoronary bypass graft
CPT/HCPCS: 36415; 74177; 80048; 80076; 82550; 82553; 83605; 83690; 84484; 85025; 85610; 85730; 93005; 93041; 96374; 99285; G0463; Q9967

== ENCOUNTER → 2017-11-15 | Outpatient (CLI) | payer OTHER ==
[2017-11-15 11:40] LABS: ALBUMIN 3.9 GM/DL (3.2-5.2); ANION GAP 5 MEQ/L (8-16); BLOOD UREA NITROGEN 28 MG/DL (7-18); CALCIUM LEVEL 8.9 MG/DL (8.8-10.2); CARBON DIOXIDE LEVEL 31 MEQ/L (21-32); CHLORIDE LEVEL 108 MEQ/L (98-107); CREATININE FOR GFR 1.12 MG/DL (0.70-1.30); GLOMERULAR FILTRATION RATE > 60.0 (>35); GLUCOSE, FASTING 92 MG/DL (70-100); MAGNESIUM LEVEL 2.2 MG/DL (1.8-2.4); PHOSPHORUS LEVEL 2.7 MG/DL (2.5-4.9); SODIUM LEVEL 144 MEQ/L (136-145)
== END ==
LOC: M LRY 09:42
DX: I50.32 Chronic diastolic (congestive) heart failure (principal); I48.2 Chronic atrial fibrillation
CPT/HCPCS: 83735

== ENCOUNTER → 2018-02-18 | Outpatient (CLI) | payer OTHER ==
[2018-02-18 17:38] LABS: ALBUMIN 3.9 GM/DL (3.2-5.2); ANION GAP 3 MEQ/L (8-16); BLOOD UREA NITROGEN 23 MG/DL (7-18); CALCIUM LEVEL 8.6 MG/DL (8.8-10.2); CARBON DIOXIDE LEVEL 32 MEQ/L (21-32); CHLORIDE LEVEL 109 MEQ/L (98-107); GLOMERULAR FILTRATION RATE > 60.0 (>35); GLUCOSE, FASTING 87 MG/DL (70-100); MAGNESIUM LEVEL 2.4 MG/DL (1.8-2.4); POTASSIUM SERUM 4.3 MEQ/L (3.5-5.1); SODIUM LEVEL 144 MEQ/L (136-145)
== END ==
LOC: M LRY 09:55
DX: I50.32 Chronic diastolic (congestive) heart failure (principal); I48.2 Chronic atrial fibrillation; D51.9 Vitamin B12 deficiency anemia, unspecified; E78.2 Mixed hyperlipidemia
CPT/HCPCS: 83735

== ENCOUNTER → 2018-02-18 | Outpatient (REF) | payer OTHER ==
[2018-02-18 17:26] LABS: ALBUMIN 3.8 GM/DL (3.2-5.2); ALBUMIN/GLOBULIN RATIO 1.31 (1.00-1.93); ALKALINE PHOSPHATASE 130 U/L (45-117); ALT/SGPT 20 U/L (12-78); ANION GAP 4 MEQ/L (8-16); AST/SGOT 23 U/L (7-37); BILIRUBIN,TOTAL 0.6 MG/DL (0.2-1.0); BLOOD UREA NITROGEN 24 MG/DL (7-18); CALCIUM LEVEL 8.9 MG/DL (8.8-10.2); CARBON DIOXIDE LEVEL 31 MEQ/L (21-32); CHLORIDE LEVEL 108 MEQ/L (98-107); CHOLESTEROL LEVEL 121 MG/DL (<200); CREATININE FOR GFR 1.22 MG/DL (0.70-1.30); GLOMERULAR FILTRATION RATE > 60.0 (>35); GLUCOSE, FASTING 88 MG/DL (70-100); HDL CHOLESTEROL 46 MG/DL (>40); LDL CHOLESTEROL 62.4 MG/DL (<100); NON-HDL-C 75 MG/DL; POTASSIUM SERUM 4.5 MEQ/L (3.5-5.1); SODIUM LEVEL 143 MEQ/L (136-145); TOTAL PROTEIN 6.7 GM/DL (6.4-8.2); TRIGLYCERIDES LEVEL 63 MG/DL (<150)
[2018-02-18 18:45] LABS: BASO # 0.1 10^3/uL (0.0-0.2); BASO % 0.8 % (0.0-1.0); EOS # 0.2 10^3/uL (0.0-0.50); EOS % 3.8 % (0.0-3.0); HEMATOCRIT 38.1 % (42.0-52.0); HEMOGLOBIN 12.2 g/dl (13.5-17.5); IMMATURE GRANULOCYTE % 0.3 % (0-3.0); LYMPH # 1.2 10^3/uL (1.5-4.5); MEAN CORPUSCULAR HEMOGLOBIN 31.9 pg (27.0-33.0); MEAN CORPUSCULAR VOLUME 99.5 fl (80.0-96.0); MONO # 0.9 10^3/uL (0.0-0.8); MONO % 14.4 % (0.0-5.0); NEUTROPHILS # 3.7 10^3/uL (1.8-7.7); NEUTROPHILS % 60.7 % (36.0-66.0); PLATELET COUNT, AUTOMATED 152 10^3/uL (150-450); RED BLOOD COUNT 3.83 10^6/uL (4.30-6.10); RED CELL DISTRIBUTION WIDTH 13.6 % (11.5-14.5); WHITE BLOOD COUNT 6.1 10^3/uL (4.0-10.0)
[2018-02-21 10:28] LABS: VITAMIN B12 LEVEL 329 PG/ML (247-911)
== END ==
LOC: M SFHCPLAZ 09:49
DX: D51.9 Vitamin B12 deficiency anemia, unspecified (principal); E78.2 Mixed hyperlipidemia; I50.32 Chronic diastolic (congestive) heart failure; I48.2 Chronic atrial fibrillation

== ENCOUNTER → 2018-06-03 | Outpatient (CLI) | payer OTHER | LOC: M LRY 14:13 | DX: S89.91XA Unspecified injury of right lower leg, initial encounter (principal); M85.861 Other specified disorders of bone density and structure, right lower leg; W19.XXXA Unspecified fall, initial encounter; Y92.017 Garden or yard in single-family (private) house as the place of occurrence of the external cause; Z96.651 Presence of right artificial knee joint | CPT/HCPCS: 73564; G0463 ==

== ENCOUNTER → 2018-06-20 | Outpatient (CLI) | payer OTHER ==
[2018-06-20 17:45] LABS: ANION GAP 7 MEQ/L (8-16); BLOOD UREA NITROGEN 24 MG/DL (7-18); CALCIUM LEVEL 9.2 MG/DL (8.8-10.2); CARBON DIOXIDE LEVEL 30 MEQ/L (21-32); CHLORIDE LEVEL 106 MEQ/L (98-107); CREATININE FOR GFR 1.14 MG/DL (0.70-1.30); GLOMERULAR FILTRATION RATE > 60.0 (>35); GLUCOSE, FASTING 79 MG/DL (70-100); MAGNESIUM LEVEL 2.3 MG/DL (1.8-2.4); POTASSIUM SERUM 4.8 MEQ/L (3.5-5.1); SODIUM LEVEL 143 MEQ/L (136-145)
== END ==
LOC: M LRY 12:00
DX: I50.32 Chronic diastolic (congestive) heart failure (principal)
CPT/HCPCS: 83735

== ENCOUNTER → 2018-08-26 | Outpatient (REF) | payer OTHER ==
[~2018-08-26] MED LIST changes: +MEMA1TAB2
[2018-08-26 13:43] LABS: HEMOGLOBIN A1c 5.6 %
[2018-08-26 13:57] LABS: ALBUMIN 4.3 GM/DL (3.2-5.2); ALT/SGPT 25 U/L (12-78); BILIRUBIN,TOTAL 0.6 MG/DL (0.2-1.0); BLOOD UREA NITROGEN 24 MG/DL (7-18); CALCIUM LEVEL 9.2 MG/DL (8.8-10.2); CARBON DIOXIDE LEVEL 32 MEQ/L (21-32); CHLORIDE LEVEL 105 MEQ/L (98-107); CREATININE FOR GFR 1.05 MG/DL (0.70-1.30); GLOMERULAR FILTRATION RATE > 60.0 (>35); GLUCOSE, FASTING 80 MG/DL (70-100); POTASSIUM SERUM 4.7 MEQ/L (3.5-5.1); SODIUM LEVEL 143 MEQ/L (136-145)
== END ==
LOC: M SFHCPLAZ 11:05
PROVIDERS: ATTEND Nurse Practitioner Family
DX: E78.2 Mixed hyperlipidemia (principal); E11.9 Type 2 diabetes mellitus without complications
CPT/HCPCS: 36415; 80053; 83036; G0463

== ENCOUNTER → 2018-12-27 | Outpatient (REF) | payer MEDICARE ==
[~2018-12-27] MED LIST changes: -/MOXI40TA; -AMIO10TA; +AVEL1TAB2; +NYST-15 TOP; -NYST10PW TOP; +PACE0.05
[2018-12-27 14:04] LABS: HEMATOCRIT 39.2 % (42.0-52.0); HEMOGLOBIN 12.6 g/dl (13.5-17.5); MEAN CORPUSCULAR HEMOGLOBIN 32.1 pg (27.0-33.0); MEAN CORPUSCULAR HGB CONC 32.1 g/dl (32.0-36.5); MEAN CORPUSCULAR VOLUME 99.7 fl (80.0-96.0); PLATELET COUNT, AUTOMATED 151 10^3/uL (150-450); RED BLOOD COUNT 3.93 10^6/uL (4.30-6.10); WHITE BLOOD COUNT 7.5 10^3/uL (4.0-10.0)
[2018-12-27 14:31] LABS: ALBUMIN 4.1 GM/DL (3.2-5.2); ALT/SGPT 25 U/L (12-78); BILIRUBIN,TOTAL 0.5 MG/DL (0.2-1.0); BLOOD UREA NITROGEN 31 MG/DL (7-18); CALCIUM LEVEL 9.1 MG/DL (8.8-10.2); CARBON DIOXIDE LEVEL 30 MEQ/L (21-32); CHLORIDE LEVEL 104 MEQ/L (98-107); CREATININE FOR GFR 1.21 MG/DL (0.70-1.30); GLOMERULAR FILTRATION RATE > 60.0 (>35); GLUCOSE, FASTING 85 MG/DL (70-100); POTASSIUM SERUM 4.3 MEQ/L (3.5-5.1); SODIUM LEVEL 141 MEQ/L (136-145); TOTAL PROTEIN 6.6 GM/DL (6.4-8.2)
[2018-12-27 14:36] LABS: FOLATE > 24.0 NG/ML (>5.4); VITAMIN B12 LEVEL 380 PG/ML (247-911)
== END ==
LOC: M SFHCPLAZ 11:08
PROVIDERS: ATTEND Nurse Practitioner Family
DX: D51.9 Vitamin B12 deficiency anemia, unspecified (principal); E78.2 Mixed hyperlipidemia; I11.0 Hypertensive heart disease with heart failure

== ENCOUNTER 2019-08-11 08:40 | Emergency (ER) | payer MEDICARE ==
[~2019-08-11] VITALS: Ht 167.6 cm; Wt 95.5 kg
[2019-08-11] MEDS ORDERED: QUET1TAB7 (09:07)
[2019-08-11] MEDS ORDERED: CYAN1000VL (09:07)
[2019-08-11] MEDS: ASPIRIN 81 MG CHEW TABLET PO ONE (09:11)
[2019-08-11 09:24] LABS: BASO % 0.9 % (0.0-1.0); EOS # 0.2 10^3/uL (0.0-0.5); EOS % 5.3 % (0.0-3.0); HEMATOCRIT 36.7 % (42.0-52.0); HEMOGLOBIN 11.5 g/dl (13.5-17.5); LYMPH # 1.1 10^3/uL (1.5-5.0); LYMPH % 25.3 % (24.0-44.0); MEAN CORPUSCULAR HEMOGLOBIN 32.1 pg (27.0-33.0); MEAN CORPUSCULAR HGB CONC 31.3 g/dl (32.0-36.5); MEAN CORPUSCULAR VOLUME 102.5 fl (80.0-96.0); MONO # 0.6 10^3/uL (0.0-0.8); MONO % 14.9 % (0.0-5.0); NEUTROPHILS # 2.3 10^3/uL (1.5-8.5); NEUTROPHILS % 53.1 % (36.0-66.0); PLATELET COUNT, AUTOMATED 129 10^3/uL (150-450); RED BLOOD COUNT 3.58 10^6/uL (4.30-6.10); WHITE BLOOD COUNT 4.3 10^3/uL (4.0-10.0)
[2019-08-11 09:48] LABS: BLOOD UREA NITROGEN 28 MG/DL (7-18); CALCIUM LEVEL 8.7 MG/DL (8.8-10.2); CARBON DIOXIDE LEVEL 30 MEQ/L (21-32); CHLORIDE LEVEL 110 MEQ/L (98-107); CK-MB VALUE MASS 2.4 NG/ML (<3.6); CPK CREATINE PHOSPHOKINASE 170 U/L (39-308); CREATININE FOR GFR 1.17 MG/DL (0.70-1.30); GLOMERULAR FILTRATION RATE > 60.0 (>35); GLUCOSE, FASTING 80 MG/DL (70-100); MB/CK RELATIVE INDEX 1.41 (< OR =4); POTASSIUM SERUM 5.2 MEQ/L (3.5-5.1); SODIUM LEVEL 143 MEQ/L (136-145); TROPONIN I 0.04 NG/ML (< 0.10)
--- NOTE | 2019-08-11 10:06 | REP ---
CHEST, SINGLE VIEW: Single view of the chest is performed and compared to a prior studies, most recently 11/12/2016. There is mild cardiomegaly. There is mild chronic interstitial prominence and pulmonary vasculature prominence unchanged. There is no new infiltrate. Mediastinale silhouette is unchanged. Multiple sternal wires and mediastinal clips are present as well as a dual lead pacemaker. IMPRESSION: Cardiomegaly. No acute infiltrate. Electronically Signed by Jose Alvarez MD 08/14/2019 09:06 A
[2019-08-11 12:04] LABS: CK-MB VALUE MASS 2.9 NG/ML (<3.6); MB/CK RELATIVE INDEX 2.5 (< OR =4); TROPONIN I 0.05 NG/ML (< 0.10)
--- NOTE | 2019-08-11 13:14 | ECGEPIP ---
[facility] - ED Test Date: 2019-08-11 Pat Name: EDMUNDO VOSS Department: Room: - Gender: Male Charge Aide: PMO : 1930 Requested By: Omid Mcmahon Order Number: [id number] Reading MD: Tracie Warren Measurements Intervals [place] Rate: 60 P: [place]: 0 QRS: -63 QRSD: 199 T: 88 QT: 538 QTc: 538 Interpretive Statements ELECTRONIC VENTRICULAR PACEMAKER ABNORMAL RHYTHM ECG Electronically Signed on 08-11-2019 13:14:06 EST by Tracie Warren
[2019-08-11 13:56] LABS: CK-MB VALUE MASS 2.4 NG/ML (<3.6); MB/CK RELATIVE INDEX 1.76 (< OR =4); TROPONIN I 0.05 NG/ML (< 0.10)
[2019-08-11 14:31] VITALS: BP 141/67
--- NOTE | 2019-08-12 06:33 | ECGEPIP ---
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
--- NOTE | 2019-08-12 06:34 | ECGEPIP ---
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
== END 2019-08-11 14:46 | disposition home or self-care (01) ==
LOC: M ED 08:40
DX: R07.89 Other chest pain (principal); R94.31 Abnormal electrocardiogram [ECG] [EKG]; I11.0 Hypertensive heart disease with heart failure; I50.9 Heart failure, unspecified; E11.9 Type 2 diabetes mellitus without complications; G47.33 Obstructive sleep apnea (adult) (pediatric); F03.90 Unspecified dementia, unspecified severity, without behavioral disturbance, psychotic disturbance, mood disturbance, and anxiety; E78.5 Hyperlipidemia, unspecified; Z88.8 Allergy status to other drugs, medicaments and biological substances; Z79.82 Long term (current) use of aspirin; Z79.899 Other long term (current) drug therapy; Z95.0 Presence of cardiac pacemaker; Z95.1 Presence of aortocoronary bypass graft; Z87.19 Personal history of other diseases of the digestive system; Z86.79 Personal history of other diseases of the circulatory system; Z82.49 Family history of ischemic heart disease and other diseases of the circulatory system

== ENCOUNTER → 2019-09-14 | Outpatient (CLI) | payer MEDICARE ==
[~2019-09-14] MED LIST changes: +CYAN1000VL; +MEMA10TA19; -MEMA1TAB2; +QUET1TAB7; -SIMV40TA2 PO; +SIMV40TA20 PO
[2019-09-14 20:16] LABS: HEMOGLOBIN A1c 5.7 %
== END ==
LOC: M PLALAB 14:12
PROVIDERS: ATTEND Student in an Organized Health Care Education/Training Program
DX: E11.9 Type 2 diabetes mellitus without complications (principal); D51.9 Vitamin B12 deficiency anemia, unspecified
CPT/HCPCS: 36415; 82607; 83036; G0463

== ENCOUNTER 2019-10-28 14:59 | Emergency (ER) | payer MEDICARE ==
[~2019-10-28] VITALS: Ht 172.7 cm; Wt 81.4 kg
[~2019-10-28 14:59] MED LIST changes: -GLUC1TAB58 PO; -MULTCAP PO; -NITR4TASL SL
[2019-10-28] MEDS ORDERED: LIDOCAINE 2% 5ML JELLY UROJET TOP ONE (15:45)
--- NOTE | 2019-10-28 15:59 | REP ---
Clinical: Altered mental status. Comparison: 11/04/2016 . Findings: Age-related atrophy and microvascular ischemic changes are appreciated. The ventricles and sulci are symmetric. Alvarez-white differentiation is maintained. There is no evidence for acute intracranial hemorrhage, mass/mass effect, pathology or infarction. No extra-axial fluid collection. Calvarium is intact. Paranasal sinuses and mastoid air cells are clear. Impression: Age related atrophy and microvascular ischemic changes. No acute intracranial hemorrhage, infarction, or mass/mass effect. Electronically Signed by Gigi Barber MD 10/28/2019 03:50 P
[2019-10-28 16:10] LABS: HEMATOCRIT 38.2 % (42.0-52.0); MEAN CORPUSCULAR HEMOGLOBIN 30.8 pg (27.0-33.0); MEAN CORPUSCULAR HGB CONC 31.4 g/dl (32.0-36.5); MEAN CORPUSCULAR VOLUME 97.9 fl (80.0-96.0); PLATELET COUNT, AUTOMATED 136 10^3/uL (150-450); WHITE BLOOD COUNT 6.9 10^3/uL (4.0-10.0)
[2019-10-28] MEDS ORDERED: GLUC1TAB58 PO (16:15)
[2019-10-28] MEDS ORDERED: NITR4TASL SL (16:16)
[2019-10-28] MEDS ORDERED: MULTCAP PO (16:16)
[2019-10-28 16:37] LABS: ALBUMIN 3.5 GM/DL (3.2-5.2); ALT/SGPT 19 U/L (12-78); BILIRUBIN,DIRECT 0.2 MG/DL (0.0-0.2); BILIRUBIN,TOTAL 0.5 MG/DL (0.2-1.0); BLOOD UREA NITROGEN 30 MG/DL (7-18); CALCIUM LEVEL 8.2 MG/DL (8.8-10.2); CARBON DIOXIDE LEVEL 28 MEQ/L (21-32); CHLORIDE LEVEL 110 MEQ/L (98-107); CREATININE FOR GFR 1.17 MG/DL (0.70-1.30); ETHYL ALCOHOL (ETHANOL) < 0.003 % (0.000-0.010); GLOMERULAR FILTRATION RATE > 60.0 (>35); GLUCOSE, FASTING 99 MG/DL (70-100); POTASSIUM SERUM 4.3 MEQ/L (3.5-5.1); SODIUM LEVEL 144 MEQ/L (136-145); TOTAL PROTEIN 6.4 GM/DL (6.4-8.2)
[2019-10-28 17:12] VITALS: BP 150/80
== END 2019-10-28 17:36 | disposition home or self-care (01) ==
LOC: M ED 14:59 → EDBD 14:59 → EDSEX 14:59 → M ED 17:36
DX: F03.90 Unspecified dementia, unspecified severity, without behavioral disturbance, psychotic disturbance, mood disturbance, and anxiety (principal); I11.9 Hypertensive heart disease without heart failure; Z79.1 Long term (current) use of non-steroidal anti-inflammatories (NSAID); Z79.899 Other long term (current) drug therapy; Z88.8 Allergy status to other drugs, medicaments and biological substances
CPT/HCPCS: 51701; 70450; 80048; 80076; 81001; 85027; 99284; G0480

== ENCOUNTER → 2019-10-28 | Outpatient (REF) | payer MEDICARE ==
[~2019-10-28] MED LIST changes: +GLUC1TAB58 PO; +MULTCAP PO; +NITR4TASL SL
== END ==
LOC: M SFHCLERA 13:16
PROVIDERS: ATTEND Nurse Practitioner Family
DX: R30.0 Dysuria (principal); Z53.8 Procedure and treatment not carried out for other reasons

== ENCOUNTER 2019-11-27 21:09 | Inpatient (IN) | payer MEDICARE ==
[~2019-11-27] VITALS: Ht 172.7 cm; Wt 89.4 kg
[~2019-11-27 21:09] MED LIST changes: +GLUC1TAB58 PO; +MULTCAP PO; +NITR4TASL SL
[2019-11-27] MEDS ORDERED: SIMV40TA20 (21:24)
[2019-11-27] MEDS ORDERED: DONE10TA90 (21:24)
[2019-11-27] MEDS ORDERED: MEMA10TA19 (21:24)
[2019-11-27 22:14] LABS: BASO # 0.1 10^3/uL (0.0-0.2); BASO % 0.8 % (0.0-1.0); EOS # 0.3 10^3/uL (0.0-0.5); EOS % 4.8 % (0.0-3.0); HEMATOCRIT 37.2 % (42.0-52.0); LYMPH # 1.3 10^3/uL (1.5-5.0); LYMPH % 19.4 % (24.0-44.0); MEAN CORPUSCULAR HEMOGLOBIN 31.3 pg (27.0-33.0); MEAN CORPUSCULAR HGB CONC 32.3 g/dl (32.0-36.5); MEAN CORPUSCULAR VOLUME 97.1 fl (80.0-96.0); MONO # 0.9 10^3/uL (0.0-0.8); MONO % 13.8 % (0.0-5.0); NEUTROPHILS % 60.7 % (36.0-66.0); PLATELET COUNT, AUTOMATED 149 10^3/uL (150-450); RED BLOOD COUNT 3.83 10^6/uL (4.30-6.10); WHITE BLOOD COUNT 6.7 10^3/uL (4.0-10.0)
[2019-11-27 22:26] LABS: INR 1.03; PROTHROMBIN TIME 13.2 SECONDS (11.8-14.0)
[2019-11-27 22:27] LABS: PARTIAL THROMBOPLASTIN TIME 23.4 SECONDS (25.0-38.4)
[2019-11-27] MEDS ORDERED: QUET1TAB7 PO (22:54)
[2019-11-27] MEDS ORDERED: ASPI-161 PO (22:54)
[2019-11-27] MEDS ORDERED: DONE10TA90 PO (22:54)
[2019-11-27] MEDS ORDERED: OSTETAB2 PO (22:54)
[2019-11-27] MEDS ORDERED: VITMTA PO (22:54)
[2019-11-27 22:55] LABS: ALBUMIN 3.7 GM/DL (3.2-5.2); BILIRUBIN,DIRECT 0.1 MG/DL (0.0-0.2); BILIRUBIN,TOTAL 0.3 MG/DL (0.2-1.0); CALCIUM LEVEL 8.5 MG/DL (8.8-10.2); CK-MB VALUE MASS 1.8 NG/ML (<3.6); CREATININE FOR GFR 1.26 MG/DL (0.70-1.30); FREE T4 0.75 NG/DL (0.76-1.46); GLOMERULAR FILTRATION RATE 57.6 (>35); MB/CK RELATIVE INDEX 1.73 (< OR =4); POTASSIUM SERUM 4.7 MEQ/L (3.5-5.1); THYROID STIMULATING HORMONE 2.47 uIU/ML (0.358-3.740); TOTAL PROTEIN 6.7 GM/DL (6.4-8.2); TROPONIN I 0.05 NG/ML (< 0.10)
[2019-11-27] MEDS ORDERED: ISOVUE-370 76% 100ML VIAL (Q9967) As Ordered ONE (23:30)
--- NOTE | 2019-11-28 00:17 | REPVR ---
PROCEDURE INFORMATION: Exam: CT Head Without Contrast Exam date and time: 11/27/2019 11:11 PM Age: 89 years old Clinical indication: Injury or trauma; Fall; Initial encounter; Concussion / head injury TECHNIQUE: Imaging protocol: Computed tomography of the head without contrast. Radiation optimization: All CT scans at this facility use at least one of these dose optimization techniques: automated exposure control; mA and/or kV adjustment per patient size (includes targeted exams where dose is matched to clinical indication); or iterative reconstruction. COMPARISON: CT Head without contrast 10/28/2019 3:40 PM FINDINGS: Brain: There is diffuse cortical atrophy and hypoattenuation of the deep white matter. No acute hemorrhage. Ventricles: Unremarkable. No ventriculomegaly. Bones/joints: Unremarkable. No acute fracture. Sinuses: Unremarkable as visualized. No acute sinusitis. Mastoid air cells: Unremarkable as visualized. No mastoid effusion. Soft tissues: Unremarkable. IMPRESSION: No acute intracranial process. 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 Electronically signed by: Kenny Flores On 11/28/2019 00:17:09 AM
--- NOTE | 2019-11-28 00:30 | REPVR ---
PROCEDURE INFORMATION: Exam: CT Cervical Spine Without Contrast Exam date and time: 11/27/2019 11:11 PM Age: 89 years old Clinical indication: Neck pain; Additional info: Trauma TECHNIQUE: Imaging protocol: Computed tomography images of the cervical spine without contrast. Radiation optimization: All CT scans at this facility use at least one of these dose optimization techniques: automated exposure control; mA and/or kV adjustment per patient size (includes targeted exams where dose is matched to clinical indication); or iterative reconstruction. COMPARISON: CT Spine,cervical w/o contrast 11/04/2016 9:38 AM FINDINGS: Vertebrae: There is a type 2 dens fracture. The margins appear sclerotic and irregular. There is 2-5 mm distraction. There is no additional acute fracture or dislocation. There is spondyloarthropathy. Discs/Spinal canal/Neural foramina: There are degenerative disc changes. Soft tissues: Unremarkable. Lungs: The lung apices are without an acute process or mass. IMPRESSION: 1. There is a type 2 dens fracture with chronic appearing features, having occurred since the previous CT cervical spine 11/04/2016. 2. No evidence of an acute process or fracture. Electronically signed by: Kenny Flores On 11/28/2019 00:29:51 AM
--- NOTE | 2019-11-28 00:41 | REPVR ---
PROCEDURE INFORMATION: Exam: CT Chest With Contrast Exam date and time: 11/27/2019 11:11 PM Age: 89 years old Clinical indication: Chest pain; Additional info: Trauma TECHNIQUE: Imaging protocol: Computed tomography of the chest with intravenous contrast. Radiation optimization: All CT scans at this facility use at least one of these dose optimization techniques: automated exposure control; mA and/or kV adjustment per patient size (includes targeted exams where dose is matched to clinical indication); or iterative reconstruction. Contrast material: ISO; Contrast volume: 100 ml; Contrast route: HAND; COMPARISON: CT ANGIO CHEST 12/20/2012 9:11 PM FINDINGS: Lungs: There is a septal thickening in the dependent bases which could represent possible gravity dependent pulmonary edema. No consolidation. No masses. Pleural space: No pneumothorax. No pleural effusion. Heart: Unremarkable. No cardiomegaly. No pericardial effusion. Aorta: There are scattered atherosclerotic mural calcifications. No aortic aneurysm. Lymph nodes: Unremarkable. No enlarged lymph nodes. Bones/joints: The median sternotomy wires remain intact. No acute fracture. Soft tissues: Unremarkable. IMPRESSION: 1. There is evidence of a a gravity dependent pulmonary edema in the lung bases. No consolidating infiltrates. 2. Otherwise No evidence of thoracic trauma or an acute cardiopulmonary process. Electronically signed by: Kenny Flores On 11/28/2019 00:41:08 AM
--- NOTE | 2019-11-28 00:53 | REPVR ---
PROCEDURE INFORMATION: Exam: CT Abdomen And Pelvis With Contrast Exam date and time: 11/27/2019 11:11 PM Age: 89 years old Clinical indication: Injury or trauma; Fall; Initial encounter; Blunt; Generalized TECHNIQUE: Imaging protocol: Computed tomography of the abdomen and pelvis with intravenous contrast. Radiation optimization: All CT scans at this facility use at least one of these dose optimization techniques: automated exposure control; mA and/or kV adjustment per patient size (includes targeted exams where dose is matched to clinical indication); or iterative reconstruction. Contrast material: ISO; Contrast volume: 100 ml; Contrast route: HAND; COMPARISON: CT ABD/PEL W/IV CONTRAST ONLY 06/22/2017 5:34 PM FINDINGS: Liver: Unremarkable. No mass. Gallbladder and bile ducts: No calcified stones. No ductal dilation. Pancreas: Unremarkable. No ductal dilation. Spleen: There are numerous punctate calcifications of the spleen consistent with a prior granulomatous process.. No splenomegaly. Adrenals: Unremarkable. No mass. Kidneys and ureters: There are numerous simple renal cortical cysts, measuring up to 4 cm in size. No hydronephrosis. Stomach and bowel: No obstruction. No mucosal thickening. Appendix: No evidence of appendicitis. Intraperitoneal space: No free air. No significant fluid collection. Vasculature: There are atherosclerotic mural calcifications of the aorta. No abdominal aortic aneurysm. Lymph nodes: No enlarged lymph nodes. Bladder: Unremarkable as visualized. Reproductive: Unremarkable as visualized. Bones/joints: No acute fracture. No dislocation. There are multilevel degenerative disc changes of the spine. Soft tissues: Unremarkable. IMPRESSION: 1. No acute process of the abdomen or pelvis. 2. Stable bilateral simple renal cortical cysts. Electronically signed by: Kenny Flores On 11/28/2019 00:53:10 AM
--- NOTE | 2019-11-28 03:25 | HPEPDOC ---
[facility] Medical History & Physical Date of Admission Nov 28, 2019 Date of Service: Nov 28, 2019 Primary Care Physician: Zechariah Tidwell MD Attending Physician: Zechariah Tidwell MD History and Physical TIME OF SERVICE: 3:35 AM CHIEF COMPLAINT: Fall HISTORY OF PRESENT ILLNESS: The majority of the history was obtained from the patient's son-in-law in the ER attending. This is an 89-year-old gentleman with a history of dementia who had a fall off of the toilet. His son-in-law was not able to provide specific details about whether the patient hit his head or lost consciousness, but per Dr. Veronica, ordered CT of the head, cervical spine, chest and abdomen along with CBC, CMP, and troponin which were unrevealing. The patient's family had her anemia plans to place him in a shelter and the decision as to whether he go to [facility] or [facility] would be made tomorrow. The patient family didn't feel comfortable going home with him tonight, therefore, admission was requested pending shelter placement. 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 History of pacemaker insertion for sick sinus syndrome SOCIAL HISTORY: Nonsmoker ALLERGIES: Please see below. HOME MEDICATIONS: Please see below. Vital Signs Date Time Temp Pulse Resp B/P (MAP) Pulse Ox O2 Delivery O2 Flow Rate FiO2 11/27/19 21:27 97.4 62 18 159/73 (101) 99 11/27/19 22:09 Room Air PHYSICAL EXAMINATION: GEN: well-nourished / well developed/ NAD INTEGUMENT: not flushed/ not jaundice / no rashes / no skin lesions HEENT: NCAT / lips acyanotic /mucus membranes moist and pink / sclera anicteric/ abdominojugular reflux CVS: RRR/NMRG/ no JVP / radial and dorsalis pedis pulses intact / no lower extremity edema LUNGS: able to speak full sentences without stopping to take a breath / no coughing / lungs are clear to auscultation bilaterally on room air ABDOMEN: Contour (flat, scaphoid, obese, distended) / there are no masses or lesions / bowel sounds are present / the abdomen is tympanic on percussion, soft & not tender with palpation MSK/EXTREMITIES: range of motion intact in all 4 extremities / no scoliosis / no kyphosis NEURO: CN 2-12 are grossly intact / speech is not dysarthric / strength is 5/5 / DTRs (0-4+) PSYCH: alert and oriented to person place and time/ able to understand and follow all commands LABORATORY DATA: Prothrombin Time 13.2, Prothromb Time International Ratio 1.03, Activated Partial Thromboplast Time 23.4L, Anion Gap 6L, Glomerular Filtration Rate 57.6, Calcium Level 8.5L, Total Bilirubin 0.3, Direct Bilirubin 0.1, Aspartate Amino Transf (AST/SGOT) 22, Alanine Aminotransferase (ALT/SGPT) 24, Alkaline Phosphatase 135H, Total Creatine Kinase 104, Creatine Kinase MB 1.8, Creatine Kinase MB Relative Index 1.73, Troponin I 0.05, Total Protein 6.7, Albumin 3.7, Albumin/Globulin Ratio 1.23, Lipase 282, Thyroid Stimulating Hormone (TSH) 2.470, Free Thyroxine 0.75L Urine Color YELLOW, Urine Appearance CLEAR, Urine pH 6.0, Urine Specific [place] 1.017, Urine Protein NEGATIVE, Urine Glucose (UA) NEGATIVE, Urine Ketones NEGATIVE, Urine Blood NEGATIVE, Urine Nitrite NEGATIVE, Urine Bilirubin NEGATIVE, Urine Urobilinogen 0.2, Urine Leukocyte Esterase NEGATIVE, Urine WBC (Auto) 0, Urine RBC (Auto) 6H, Urine Hyaline Casts (Auto) 0, Urine Bacteria (Auto) NEGATIVE, Urine Squamous Epithelial Cells 0, Urine Sperm (Auto) IMAGING: CT head " IMPRESSION: No acute intracranial process. 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 " CT neck " IMPRESSION: 1. There is a type 2 dens fracture with chronic appearing features, having occurred since the previous CT cervical spine 11/04/2016. 2. No evidence of an acute process or fracture. " CT chest " IMPRESSION: 1. There is evidence of a a gravity dependent pulmonary edema in the lung bases. No consolidating infiltrates. 2. Otherwise No evidence of thoracic trauma or an acute cardiopulmonary process." CT abdomen and pelvis " IMPRESSION: 1. No acute process of the abdomen or pelvis. 2. Stable bilateral simple renal cortical cysts." MICROBIOLOGY: Please see below. ASSESSMENT: Mr. Allen is an 89-year-old with a history of dementia, did pression, CAD with 7 vessel CABG, dyslipidemia, NIDDM, A. fib, diastolic CHF, gout, and B12 deficiency who is admitted for evaluation of falls pending shelter placement. PLAN: 1. Fall. It is possible that this fall was vasovagal in nature as it occurred while he was sitting on the toilet. - Admit to PCU/ frequent neuro checks/fall precautions/physical therapy consult to determine if he needs inpatient rehabilitation versus placement in an assisted living facility / check orthostats 2. Osteoporosis. By definition he has osteoporosis because of the old Cervical spine dens fracture on CT of the cervial spine - calcium 1000-1200mg daily, vitamin D 3912-8547 IU daily 3 Dementia / depression - quetiapine, sertraline, donepezil / he will be watched with the remote camera 4. CAD/7 vessel CABG / dyslipidemia - ASA, 5. NIDDM - f/u acchecks/ sliding scale insulin with hypoglycemia protocol 6. Chronic Atrial fibrillation - no AC likely bc of hx of falls 7. Diastolic CHF - lasix DVT PROPHYLAXIS: lovenox DISPOSITION: likely transfer to NH after more than 2 midnight's stay Home Medications Scheduled Aspirin (Aspirin EC) 81 Mg Tablet.dr, 81 MG PO DAILY Donepezil HCl (Donepezil HCl) 10 Mg Tablet, 10 MG PO DAILY Furosemide (Furosemide) 80 Mg Tab, 80 MG PO DAILY Glucosam/Luis-Msm1/C/Naun/Bosw (Osteo Bi-Flex Caplet) 1 Each Tablet, 1 TAB PO DAILY Multivitamins (Thera M Plus Tablet) 1 Each Tablet, 1 TAB PO DAILY Nitroglycerin (Nitrostat) 0.4 Mg Tab.subl, 0.4 MG SL ASDIRECTED for chest pain 1st sign of attack; may repeat every 5 mins; if pain persists after 3 in 15 min, medical attention is recommended Potassium Chloride (K-Tab ER) 20 Meq Tab, 20 MEQ PO DAILY Quetiapine Fumarate (Quetiapine Fumarate) 25 Mg Tablet, 25 MG PO TID Sertraline HCl (Sertraline HCl) 100 Mg Tab, 100 MG PO DAILY Allergies Coded Allergies: MICHAEL Inhibitors (Verified Adverse Reaction, Mild, lotensin- cough, 08/11/19) Beta-Blockers (Beta-Adrenergic Bloc (Verified Adverse Reaction, Mild, decreased heart rate, 08/11/19) atenolol (Verified Adverse Reaction, Mild, fatigue, 10/28/19) memantine (Verified Adverse Reaction, Mild, SHAKING, 10/28/19) A-FIB/CHADSVASC A-FIB History Current/History of A-Fib/PAF?: Yes Current PO Anticoag Therapy: No Treatment Treatment ordered: Holding Other (falls) Reason Anticoagulant not given: Other (hx of falls) Other reason anticoagulant not: falls LEO HOBSON MD Nov 28, 2019 03:25
[2019-11-28] MEDS ORDERED: MAALOX 30 ML SUSP *UDC PO PRN (03:45)
[2019-11-28] MEDS ORDERED: MOM 30ML SUSPENSION UDC PO PRN (03:45)
[2019-11-28 05:00] VITALS: BP 158/78
[2019-11-28] MEDS ORDERED: GLUCAGON FOR INJ 1 MG VIAL (J1610) SC PRN (05:15)
[2019-11-28] MEDS ORDERED: GLUCOSE 4 GM CHEW TABLET PO PRN (05:15)
[2019-11-28] MEDS ORDERED: NITROGLYCERIN 0.4 MG SUBL TABLET SL PRN (05:15)
[2019-11-28] MEDS ORDERED: DEXTROSE 50% 50 ML SYRINGE IV PRN (05:15)
[2019-11-28] MEDS: HumaLOG INSULIN (NovoLOG) PER UNIT SC SCH ×3 (07:30→17:00)
[2019-11-28] MEDS: DOCUSATE SODIUM 100 MG CAP PO SCH ×2 (08:38→20:02)
[2019-11-28] MEDS: SERTRALINE 100 MG TAB PO SCH (08:38)
[2019-11-28] MEDS: FUROSEMIDE 80 MG TAB PO SCH (08:38)
[2019-11-28] MEDS: ASPIRIN 81 MG ENTERIC TAB PO SCH (08:38)
[2019-11-28] MEDS: ENOXAPARIN 30 MG/0.3 ML SYR (J1650) SC SCH (08:38)
[2019-11-28] MEDS: QUEtiapine FUMARATE 25 MG TAB PO SCH ×3 (08:38→20:02)
[2019-11-28] MEDS: POTASSIUM CHLORIDE 10 MEQ SR TABLET PO SCH (08:38)
[2019-11-28] MEDS: VITAMIN D 1,000 INTERNATIONAL UNITS TABLET PO SCH (08:38)
[2019-11-28] MEDS: DONEPEZIL 5 MG TAB PO SCH (08:38)
[2019-11-28] MEDS: CALCIUM ACETATE 667 MG GELCAP PO SCH ×3 (08:38→17:00)
[2019-11-28] MEDS: ACETAMINOPHEN TAB 650MG DOSE (2X325MG) PO PRN ×2 (11:23→20:02)
[2019-11-28 14:00] VITALS: BP 129/62
--- NOTE | 2019-11-28 19:36 | IPN ---
DATE: 11/28/2019 Patient was extremely disoriented this morning, but cooperative and pleasant. He did not complain of any pain, dysuria, urgency or frequency, fever or chills, cough, shortness of breath. Patient is awaiting placement due to recurrent falls and inability to ambulate well at home. PHYSICAL EXAMINATION: Temperature 97.9, pulse 62, respiratory 18, blood pressure 158/78, 99% on room air. GENERAL: Patient is awake, alert, oriented to himself only. He is hard of hearing. No jugular venous distention (JVD) or thyromegaly. LUNGS: Clear. HEART: S1, S2. Sinus rhythm. ABDOMEN: Soft, nontender, nondistended. EXTREMITIES: No clubbing, cyanosis or any pitting edema. LABORATORY DATA: 11/27/2019: Complete blood count (CBC) and metabolic panel have been reviewed. ASSESSMENT AND PLAN: This is an 89-year-old male admitted due to recurrent falls at home for placement. He has a history of dementia, coronary artery bypass graft (CABG), coronary artery disease (CAD), diabetes, atrial fibrillation, diastolic congestive heart failure (CHF), B12, obstructive sleep apnea (RUSS), adenomatous polyps, gastritis, sigmoid diverticulosis, basal cell cancer, bilateral knee replacement, pacemaker due to sick sinus syndrome. ACUTE ISSUES: 1. Recurrent falls. Patient has been accepted to [facility], to be discharged tomorrow. Patient had a cervical spine dense fracture on CT. Currently on calcium and vitamin D. 2. History of osteoporosis. On supplementation. 3. Dementia/depression. On quetiapine, sertraline, donepezil. 4. Coronary artery disease (CAD), coronary artery bypass graft (CABG). Continued on aspirin. 5. Chronic atrial fibrillation. On aspirin, as the patient has had recurrent falls. 6. Diastolic heart failure. Euvolemic, on chronic Lasix. DISPOSITION: May transfer to [facility] at any time as he is medically stable. [facility]
[2019-11-28] MEDS ORDERED: RAMELTEON 8 MG TAB (ROZEREM) PO ONE (21:00)
[2019-11-28] MEDS ORDERED: HumaLOG INSULIN (NovoLOG) PER UNIT SC SCH (21:00)
[2019-11-28 22:00] VITALS: BP 105/51
[2019-11-29] MEDS: HumaLOG INSULIN (NovoLOG) PER UNIT SC SCH ×2 (07:30→12:00)
[2019-11-29] MEDS: CALCIUM ACETATE 667 MG GELCAP PO SCH ×2 (08:22→13:16)
[2019-11-29] MEDS: DONEPEZIL 5 MG TAB PO SCH (08:22)
[2019-11-29] MEDS: POTASSIUM CHLORIDE 10 MEQ SR TABLET PO SCH (08:22)
[2019-11-29] MEDS: SERTRALINE 100 MG TAB PO SCH (08:22)
[2019-11-29] MEDS: VITAMIN D 1,000 INTERNATIONAL UNITS TABLET PO SCH (08:22)
[2019-11-29] MEDS: ASPIRIN 81 MG ENTERIC TAB PO SCH (08:23)
[2019-11-29] MEDS: FUROSEMIDE 80 MG TAB PO SCH (08:23)
[2019-11-29] MEDS: QUEtiapine FUMARATE 25 MG TAB PO SCH (08:23)
[2019-11-29] MEDS: ENOXAPARIN 30 MG/0.3 ML SYR (J1650) SC SCH (08:23)
[2019-11-29] MEDS: DOCUSATE SODIUM 100 MG CAP PO SCH (08:23)
--- NOTE | 2019-11-29 08:50 | IPNPDOC ---
Subjective Date Seen The patient was seen on 11/29/19. Subjective Chief Complaint/HPI Germain is resting in the cardiac chair, he's well w/o complaints this morning. No overnight issues. Objective Physical Examination General Exam: Positive: Alert, No Acute Distress Eye Exam: Positive: PERRLA, Conjunctiva & lids normal, EOMI; Negative: Sclera icteric ENT Exam: Positive: Atraumatic, Mucous membr. moist/pink, Pharynx Normal Neck Exam: Positive: Supple; Negative: JVD, thyromegaly Chest Exam: Positive: Clear to auscultation, Normal air movement Heart Exam: Positive: Rate Normal, Regular Rhythm, Normal S1, Normal S2, Murmurs (grade 3/6 systolic murmur); Negative: Rubs Abdomen Exam: Positive: Normal bowel sounds, Soft; Negative: Tenderness, Hepatospenomegaly Male Exam: Positive: Normal Genital Exam Extremity Exam: Positive: Normal pulses; Negative: Clubbing, Cyanosis, Edema Skin Exam: Positive: Nl turgor and temperature; Negative: Rash, Breakdown Neuro Exam: Positive: Normal Speech, Normal Tone Psych Exam: Positive: Mental status NL, Mood NL, Oriented x 3 Assessment /Plan Assessment 1. Recurrent falls. 2. History of osteoporosis 3. Dementia/depression 4. Chronic CAD 5. Chronic atrial fibrillation. 6. Chronic Diastolic heart failure Plan: - medically stable for discharge to [facility] Plan/VTE VTE Prophylaxis Ordered?: Yes VTE Exclusion Mechanical Proph: N/A:VTE Prophy Ordered VTE Exclusion Pharmacological: N/A:VTE Prophy Ordered VS, I&O, 24H, Fishbone Vital Signs/I&O Vital Signs Date Time Temp Pulse Resp B/P (MAP) Pulse Ox O2 Delivery O2 Flow Rate FiO2 11/28/19 22:00 99.2 60 18 105/51 (69) 94 Room Air I&O- Last 24 Hours up to 6 AM 11/29/19 05:59 Intake Total 480 ml Output Total 2 ml Balance 478 ml Laboratory Data 24H LABS Laboratory Tests 2 11/28/19 11:17: Bedside Glucose (Misc Panel) 90 11/28/19 17:37: Bedside Glucose (Misc Panel) 90 11/28/19 20:38: Bedside Glucose (Misc Panel) 95 11/29/19 08:15: Bedside Glucose (Misc Panel) 87 AYAH MIRANDA MD Nov 29, 2019 08:50
--- NOTE | 2019-11-29 20:39 | ECGEPIP ---
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
--- NOTE | 2019-11-30 10:16 | DSES ---
DATE OF ADMISSION: 11/28/2019 DATE OF DISCHARGE: 11/29/2019 DISCHARGE DIAGNOSES: 1. Recurrent falls secondary to old age debility. 2. History of osteoporosis. 3. Dementia. 4. Depression. 5. Chronic CAD. 6. Chronic atrial fibrillation, rate controlled. 7. Chronic diastolic congestive heart failure. Procedures performed during this hospitalization were none. Consultants on the case were none. DISPOSITION: The patient is discharged to [facility]. Labs that are pending at the time of discharge are none. DISCHARGE INSTRUCTIONS: The patient is instructed to followup with [facility] physician or primary care physician in approximately 1 week's time. The patient at discharge is stable. Relevant labs are the following: White count 6.7, hemoglobin 12, hematocrit 37.2, platelet count 149,000. Sodium 143, potassium 4.7, chloride 109, bicarbonate 28, anion gap 6, BUN is 33, creatinine 1.26. Glucose 94. Calcium was 8.5. Bilirubin 0.3, AST is 22, ALT is 24, alkaline phosphatase is 135. TSH is 2.4. Free T4 0.75. Urinalysis was otherwise unremarkable. Relevant imaging studies are the followin. CT scan of the head without contrast showed no acute intracranial process. 2. CT scan of the chest with contrast showed evidence of gravity dependent pulmonary edema in the lung bases. No consolidating infiltrates. Otherwise, no evidence of thoracic trauma or acute cardiopulmonary process. 3. CT of the cervical spine showed there is a type 2 dens fracture with chronic appearing features, having occurred since the previous CT cervical spine 11/04/2016. No evidence of any acute fractures. 4. CT of the abdomen and pelvis with IV contrast. This showed no acute process of the abdomen or pelvis. Discharge medications are the following: - baby aspirin daily - Aricept 10 mg daily - furosemide 80 mg by mouth daily - Osteo B-Flex caplet one tab daily - multivitamin one capsule daily - nitroglycerin sublingual as needed for chest discomfort - potassium tablets 20 mEq by mouth daily - Seroquel 25 mg by mouth gid - Sertraline 100 mg by mouth daily HOSPITAL COURSE: Mr. Allen is an 89-year-old gentleman who had suffered a fall at home. He was brought to the emergency room by his family members. He underwent a workup in the emergency department (ED) involving extensive imaging, which did not find any acute fractures, stroke or other pathology. However, the family had felt that he was unsafe at home were actually in the process of placing him in a [facility] and did not want to take home. Therefore, he was admitted to the hospital due to safety concerns. The patient was seen by physical therapy (PT), occupational therapy (OT). Cleared for group home facility (SNF) placement and subsequently discharged there today in stable condition. Total of 30 minutes was spent completing all discharge paperwork. HOLLI
== END 2019-11-29 14:00 | DRG 884 ==
LOC: M ED 21:09 → M ED INP 11-28 03:32 → M MS5PR 11-28 04:50
PROVIDERS: ADMIT Internal Medicine; ATTEND Internal Medicine
DX: F03.90 Unspecified dementia, unspecified severity, without behavioral disturbance, psychotic disturbance, mood disturbance, and anxiety (principal); I48.20 Chronic atrial fibrillation, unspecified; I50.32 Chronic diastolic (congestive) heart failure; F32.9 Major depressive disorder, single episode, unspecified; I25.10 Atherosclerotic heart disease of native coronary artery without angina pectoris; E78.5 Hyperlipidemia, unspecified; Z95.1 Presence of aortocoronary bypass graft; E11.9 Type 2 diabetes mellitus without complications; R54 Age-related physical debility; I35.8 Other nonrheumatic aortic valve disorders; I49.5 Sick sinus syndrome; M10.9 Gout, unspecified; E53.8 Deficiency of other specified B group vitamins; K57.30 Diverticulosis of large intestine without perforation or abscess without bleeding; R29.6 Repeated falls; Z85.828 Personal history of other malignant neoplasm of skin; Z96.653 Presence of artificial knee joint, bilateral; Z95.0 Presence of cardiac pacemaker; M81.0 Age-related osteoporosis without current pathological fracture; Z79.82 Long term (current) use of aspirin; Z79.899 Other long term (current) drug therapy; Z88.8 Allergy status to other drugs, medicaments and biological substances

== ENCOUNTER 2019-12-02 11:13 | Inpatient (IN) | payer MEDICARE ==
[~2019-12-02] VITALS: Ht 172.7 cm; Wt 95.2 kg
[~2019-12-02 11:13] MED LIST changes: +ASPI-161 PO; +DONE10TA90; +DONE10TA90 PO; +OSTETAB2 PO; +QUET1TAB7 PO; +SIMV40TA20; +VITMTA PO
[2019-12-02] MEDS ORDERED: ACET-908 PO (12:23)
[2019-12-02] MEDS ORDERED: ENEMENE PR (12:23)
[2019-12-02] MEDS ORDERED: DULC10SU2 PR (12:23)
[2019-12-02] MEDS ORDERED: MOM30SS PO (12:23)
[2019-12-02 12:41] LABS: BASO # 0.1 10^3/uL (0.0-0.2); BASO % 0.8 % (0.0-1.0); EOS # 0.2 10^3/uL (0.0-0.5); EOS % 2.6 % (0.0-3.0); HEMATOCRIT 36.5 % (42.0-52.0); HEMOGLOBIN 11.8 g/dl (13.5-17.5); LYMPH % 10.8 % (24.0-44.0); MEAN CORPUSCULAR HEMOGLOBIN 31.3 pg (27.0-33.0); MEAN CORPUSCULAR HGB CONC 32.3 g/dl (32.0-36.5); MEAN CORPUSCULAR VOLUME 96.8 fl (80.0-96.0); MONO % 10.8 % (0.0-5.0); NEUTROPHILS # 6.8 10^3/uL (1.5-8.5); NEUTROPHILS % 74.2 % (36.0-66.0); PLATELET COUNT, AUTOMATED 175 10^3/uL (150-450); RED BLOOD COUNT 3.77 10^6/uL (4.30-6.10); WHITE BLOOD COUNT 9.2 10^3/uL (4.0-10.0)
[2019-12-02 13:09] LABS: INR 1.03; PROTHROMBIN TIME 13.2 SECONDS (11.8-14.0)
[2019-12-02 13:10] LABS: BLOOD UREA NITROGEN 29 MG/DL (7-18); CALCIUM LEVEL 8.6 MG/DL (8.8-10.2); CARBON DIOXIDE LEVEL 31 MEQ/L (21-32); CHLORIDE LEVEL 107 MEQ/L (98-107); CK-MB VALUE MASS 2.7 NG/ML (<3.6); CPK CREATINE PHOSPHOKINASE 129 U/L (39-308); CREATININE FOR GFR 1.12 MG/DL (0.70-1.30); GLOMERULAR FILTRATION RATE > 60.0 (>35); GLUCOSE, FASTING 93 MG/DL (70-100); MB/CK RELATIVE INDEX 2.09 (< OR =4); PARTIAL THROMBOPLASTIN TIME 29.8 SECONDS (25.0-38.4); POTASSIUM SERUM 4.7 MEQ/L (3.5-5.1); SODIUM LEVEL 143 MEQ/L (136-145); TROPONIN I 0.07 NG/ML (< 0.10)
[2019-12-02] MEDS ORDERED: MORPHINE 4 MG/ML 1ML VIAL/SYRINGE (J2270) As Ordered ONE (13:11)
[2019-12-02] MEDS ORDERED: MORPHINE 4 MG/ML 1ML VIAL/SYRINGE (J2270) IV ONE (13:15)
[2019-12-02] MEDS ORDERED: FLEET ENEMA PR PRN (14:00)
[2019-12-02] MEDS ORDERED: ACETAMINOPHEN TAB 650MG DOSE (2X325MG) PO PRN (14:00)
[2019-12-02] MEDS ORDERED: BISACODYL 10 MG SUPP PR PRN (14:00)
[2019-12-02] MEDS ORDERED: ONDANSETRON 4MG/2ML VIAL (J2405) IV PRN (14:00)
[2019-12-02] MEDS ORDERED: MORPHINE 2 MG/ML 1ML VIAL (J2270) IV PRN (14:00)
[2019-12-02] MEDS ORDERED: MOM 30ML SUSPENSION UDC PO PRN (14:00)
[2019-12-02] MEDS ORDERED: NITROGLYCERIN 0.4 MG SUBL TABLET SL PRN (14:00)
--- NOTE | 2019-12-02 14:30 | HPEPDOC ---
General Date of Admission Dec 02, 2019 at 13:48 Date of Service: Dec 02, 2019 Chief Complaint The patient is a 89-year-old male Who presented to the ER after experiencing a fall at [facility]. History of Present Illness Patient is n 89 year old male with a PMHx of Dementia, CAD s/p CABG, Chronic A. fib (on ASA), Chronic Diastolic CHF, Moderate AV sclerosis, SSS s/p Ventricular PM, DLP, Pre-DM2, RUSS (not on CPAP), Hx of GI bleed 2/2 Gastritis, Diverticulosis, who presented to the ER after experiencing a fall at [facility]. Patient was recently admitted to [facility] on 11/28/2019 to 11/29/2019 for multiple falls. Patient was noted to have frequent falls at home and was admitted for physical therapy and was ultimately placed at [facility] once he was cleared. Patient remained there for 3 days until he fell while trying to get into a wheelchair. Patient has severe dementia and is unable to provide any details to his history. His daughter, Minoo Allen was present at the bedside to provide details. Upon arrival to the ER patient had imaging complete that showed evidence of R femur fracture. Hospitalist service was called for evaluation. Currently patient does not appear to be in any distress after receiving Morphine IV. Home Medications Scheduled Aspirin (Aspirin EC) 81 Mg Tablet.dr, 81 MG PO DAILY, (Reported) Donepezil HCl (Donepezil HCl) 10 Mg Tablet, 10 MG PO DAILY, (Reported) Furosemide (Furosemide) 80 Mg Tab, 80 MG PO DAILY, (Reported) Multivitamins (Thera M Plus Tablet) 1 Each Tablet, 1 TAB PO DAILY, (Reported) Potassium Chloride (K-Tab ER) 20 Meq Tab, 20 MEQ PO DAILY, (Reported) Quetiapine Fumarate (Quetiapine Fumarate) 25 Mg Tablet, 25 MG PO TID, (Reported) Sertraline HCl (Sertraline HCl) 100 Mg Tab, 100 MG PO DAILY, (Reported) Scheduled PRN Acetaminophen (Acetaminophen) 325 Mg Tablet, 650 MG PO Q4H PRN for PAIN / FEVER, (Reported) Bisacodyl (Dulcolax) 10 Mg Supp.rect, 10 MG UT DAILY PRN for CONSTIPATION, (Reported) Milk Of Magnesia (Milk of Magnesia) 2,400 Mg/10 Ml Oral.susp, 10 ML PO DAILY PRN for CONSTIPATION, (Reported) Nitroglycerin (Nitrostat) 0.4 Mg Tab.subl, 0.4 MG SL NITRO PRN for CHEST PAIN, (Reported) Sodium Phosphate,[place]-Dibasic (Enema) 133 Ml Enema, 1 SHAZIA UT DAILY PRN for CONSTIPATION, (Reported) Allergies Coded Allergies: MICHAEL Inhibitors (Verified Adverse Reaction, Mild, lotensin- cough, 07/22 11/08) Beta-Blockers (Beta-Adrenergic Bloc (Verified Adverse Reaction, Mild, decreased heart rate, 08/11/19) atenolol (Verified Adverse Reaction, Mild, fatigue, 10/28/19) memantine (Verified Adverse Reaction, Mild, SHAKING, 10/28/19) Past Medical History Medical History Dementia, CAD s/p CABG, Chronic A. 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 Review of Systems Other systems Unable to obtain ROS as patient has severe dementia Vital Signs - Vitals: BP 114/72, HR 60, RR 18, Sat 96%RA, Temp 96.7F - General: Lying in bed, appears comfortable, Awake / alert, not oriented to person / place / time - HEENT: NC, AT - CVS: RRR, +S1S2 - Lungs: Fair air entry bilaterally, No appreciable wheezing / rales / rhonchi - Abdomen: Soft, Non-distended, Non-tender - Extremities: No lower extremity edema, No calf tenderness - Neuro: Decreased ROM at RLE - Skin: No visible rashes Laboratory Data Labs 24H Laboratory Tests 2 12/02/19 12:29: Immature Granulocyte % (Auto) 0.8, Neutrophils (%) (Auto) 74.2H, Lymphocytes (%) (Auto) 10.8L, Monocytes (%) (Auto) 10.8H, Eosinophils (%) (Auto) 2.6, Basophils (%) (Auto) 0.8, Neutrophils # (Auto) 6.8, Lymphocytes # (Auto) 1.0L, Monocytes # (Auto) 1.0H, Eosinophils # (Auto) 0.2, Basophils # (Auto) 0.1, Nucleated Red Blood Cells % (auto) 0.0, Prothrombin Time 13.2, Prothromb Time International Ratio 1.03, Activated Partial Thromboplast Time 29.8, Anion Gap 5L, Glomerular F iltration Rate > 60.0, Calcium Level 8.6L, Total Creatine Kinase 129, Creatine Kinase MB 2.7, Creatine Kinase MB Relative Index 2.09, Troponin I 0.07 CBC/BMP Laboratory Tests 12/02/19 12:29 Plan / VTE VTE Prophylaxis Ordered?: Yes Plan Plan Mechanical fall with RLE femur fracture - Patient was recently placed at [facility] for frequent falls on 11/28, he remained there for 3 days and sustained a R femur fracture after slipping from a wheelchair - Physical reveals decreased ROM of RLE - Imaging reviewed; XR hip = R femur fracture - Patient is at moderate to high risk for surgical procedure given his comorbidities; currently remains medically optimized - Thoroughly reviewed risks and benefits of surgery; at this point family would like to pursue surgery - Discussed with Orthopedic surgery and Primary care providers about discussion - Orthopedic surgery on consultation; appreciate their input - Will keep patient NPO for potential surgery today; will start D5 1/2 NS while NPO Mechanical fall - CT head 12/01: Chronic changes - CT cervical spine 12/01: no change from --. see report (Type 2 dens fracture with chronic appear features) - CXR 12/01: Chronic changes Dementia / Depression - c/w Donepezil, Quetiapine, Sertraline CAD s/p CABG - Troponin; 1st set negative - c/w telemetry monitoring - Patient was taken off of full anticoagulation given recurrent falls - c/w ASA 81 Chronic A. fib / SSS s/p Ventricular PM - Currently patient is ventricular paced - c/w ASA 81 Chronic Diastolic CHF / Moderate AV sclerosis - No evidence of exacerbation at this time - Will hold Furosemide for now DLP - Currently not on any medications Pre-DM2 - A1c of 5.7 on 08/2019 - Will c/w modified diet post-operatively RUSS - Currently is not on CPAP because of advanced dementia Hx of GI bleed 2/2 Gastritis / Diverticulosis - Hg appears stable DVT prophylaxis - Will start TEDs/ Sequentials for now - Consider Heparin SQ post-operatively VIRGINIA RIVERA MD Dec 02, 2019 14:30
[2019-12-02] MEDS: D5W/0.45% SODIUM CHLORIDE 1,000 ML IV SCH (15:02)
--- NOTE | 2019-12-02 15:21 | REP ---
REASON FOR TODAY'S EXAMINATION: Trauma. COMPARISON: 11/27/2019 There is no change from 11/27/2019. There is evidence of diffuse cerebral and cerebellar atrophic change with sulcal and ventricular prominence status quo. There is no evidence of an acute intracranial hemorrhagic or nonhemorrhagic event. There is no change in the appearance of the skull or skull base. There is no change in the paranasal sinuses or mastoid air cells. IMPRESSION: Stable chronic changes. Electronically Signed by Elmer Hdz DO 12/02/2019 03:41 P
--- NOTE | 2019-12-02 15:27 | REP ---
REASON: Trauma. COMPARISON: 11/27/2019, which showed a dens fracture. Once again, there is a type II dens fracture, which is unchanged. Significant bony demineralization and degenerative changes are seen throughout the spine, status quo. There is no significant change in appearance of the facet joints or uncovertebral joints. There is no change in their alignment. No significant change from 11/27/2019, as described above. Electronically Signed by Elmer Hdz DO 12/02/2019 03:41 P
--- NOTE | 2019-12-02 15:40 | REP ---
REASON: Trauma. COMPARISON: 08/11/2019 The technique utilized in obtaining the radiograph has magnified the cardiac silhouette and accentuated the interstitial markings. There is global cardiomegaly accentuated by technique. The cardiomediastinal silhouette is unchanged. Note is again made of previous median sternotomy and a dual-chamber bipolar pacemaker device, status quo. There is chronic interstitial fibrotic change, status quo. There are mitral annular calcifications, status quo. No acute patchy parenchymal opacities or pleural effusions have developed. There is no change in the osseous structures. IMPRESSION: No significant change. Electronically Signed by Elmer Hdz DO 12/02/2019 03:42 P
--- NOTE | 2019-12-02 15:44 | REP ---
AP PELVIS AND TWO VIEWS OF THE RIGHT HIP: REASON: Trauma. There is a comminuted proximal femoral fracture. The bones are demineralized. There are no additional fractures. Degenerative change is seen involving the hips and sacroiliac joints. IMPRESSION: Comminuted proximal right femoral fracture. Electronically Signed by Elmer Hdz DO 12/02/2019 03:46 P
--- NOTE | 2019-12-02 15:45 | REP ---
REASON: Pain after trauma. See the right hip report. There is a right knee prosthesis. There are no additional fractures. Electronically Signed by Elmer Hdz DO 12/02/2019 04:42 P
[2019-12-02 15:55] VITALS: BP 153/74
[2019-12-02] MEDS: QUEtiapine FUMARATE 25 MG TAB PO SCH ×2 (17:19→20:43)
[2019-12-02] MEDS: MORPHINE 2 MG/ML 1ML VIAL (J2270) IV PRN (17:21)
--- NOTE | 2019-12-02 17:26 | ECGEPIP ---
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
[2019-12-02 20:00] VITALS: BP 127/98
[2019-12-03] VITALS (11 sets, daily range): BP systolic 100–151; BP diastolic 53–79
[2019-12-03] MEDS: MORPHINE 2 MG/ML 1ML VIAL (J2270) IV PRN ×3 (01:22→17:00)
[2019-12-03 05:47] LABS: BASO # 0.1 10^3/uL (0.0-0.2); BASO % 0.6 % (0.0-1.0); EOS # 0.1 10^3/uL (0.0-0.5); EOS % 1.5 % (0.0-3.0); HEMATOCRIT 31.2 % (42.0-52.0); HEMOGLOBIN 10.1 g/dl (13.5-17.5); LYMPH # 0.9 10^3/uL (1.5-5.0); LYMPH % 10.3 % (24.0-44.0); MEAN CORPUSCULAR HEMOGLOBIN 31.5 pg (27.0-33.0); MEAN CORPUSCULAR HGB CONC 32.4 g/dl (32.0-36.5); MEAN CORPUSCULAR VOLUME 97.2 fl (80.0-96.0); MONO # 1.2 10^3/uL (0.0-0.8); MONO % 14.3 % (0.0-5.0); NEUTROPHILS # 6.3 10^3/uL (1.5-8.5); NEUTROPHILS % 72.7 % (36.0-66.0); PLATELET COUNT, AUTOMATED 165 10^3/uL (150-450); RED BLOOD COUNT 3.21 10^6/uL (4.30-6.10); WHITE BLOOD COUNT 8.7 10^3/uL (4.0-10.0)
[2019-12-03] MEDS ORDERED: ceFAZolin SOD 2 GM in IV 1 EA IV ONE (06:00)
[2019-12-03 06:12] LABS: CALCIUM LEVEL 7.7 MG/DL (8.8-10.2); CREATININE FOR GFR 1.28 MG/DL (0.70-1.30); GLOMERULAR FILTRATION RATE 56.6 (>35); MAGNESIUM LEVEL 2.1 MG/DL (1.8-2.4); POTASSIUM SERUM 4.6 MEQ/L (3.5-5.1)
[2019-12-03] MEDS: D5W/0.45% SODIUM CHLORIDE 1,000 ML IV SCH (07:06)
[2019-12-03] MEDS ORDERED: BUPIVACAINE/EPIN 0.25% 30 ML VIAL As Ordered ONE (07:21)
[2019-12-03] MEDS ORDERED: ceFAZolin 1GM VIAL (J0690 PER 500MG) As Ordered ONE (07:21)
[2019-12-03] MEDS ORDERED: ceFAZolin 2 GM/D5W 50 ML IV BAG (J0690 PER 500MG) As Ordered ONE (08:15)
[2019-12-03] MEDS ORDERED: ROCURONIUM BROMIDE 50 MG/5 ML VIAL As Ordered ONE ×2 (08:31→09:29)
[2019-12-03] MEDS ORDERED: PHENYLephrine HCL 500 MCG/5 ML (100MCG/ML) SYRINGE (J2370) As Ordered ONE ×4 (08:41→10:35)
[2019-12-03] MEDS ORDERED: ONDANSETRON 4MG/2ML VIAL (J2405) As Ordered ONE ×2 (08:55→09:08)
[2019-12-03] MEDS ORDERED: dexameTHASONE 4 MG/ML 1ML VIAL (J1100 PER 1MG) As Ordered ONE (08:55)
[2019-12-03] MEDS: MULTIVITAMINS/MINERALS THERAP 1 TAB PO SCH (09:00)
[2019-12-03] MEDS: DONEPEZIL 5 MG TAB PO SCH (09:00)
[2019-12-03] MEDS ORDERED: ASPIRIN 81 MG ENTERIC TAB PO SCH ×2 (09:00→21:00)
[2019-12-03] MEDS: QUEtiapine FUMARATE 25 MG TAB PO SCH ×3 (09:00→21:00)
[2019-12-03] MEDS: SERTRALINE 100 MG TAB PO SCH (09:00)
[2019-12-03] MEDS ORDERED: fentaNYL 100 MCG/2 ML INJECTION (J3010) As Ordered ONE ×2 (09:08→10:20)
[2019-12-03] MEDS ORDERED: LIDOCAINE 2% INJ 100 MG/5 ML SDV (FOR ANES.) As Ordered ONE (09:08)
[2019-12-03] MEDS ORDERED: propofoL 200 MG/20 ML VIAL As Ordered ONE (09:08)
[2019-12-03] MEDS ORDERED: SUGAMMADEX SODIUM 500 MG/5 ML VIAL (BRIDION) As Ordered ONE (09:29)
[2019-12-03 12:00] LABS: HEMATOCRIT 30.9 % (42.0-52.0); HEMOGLOBIN 9.5 g/dl (13.5-17.5); MEAN CORPUSCULAR HEMOGLOBIN 31.7 pg (27.0-33.0); MEAN CORPUSCULAR HGB CONC 30.7 g/dl (32.0-36.5); PLATELET COUNT, AUTOMATED 182 10^3/uL (150-450)
[2019-12-03] MEDS ORDERED: oxyCODONE 5MG TAB PO PRN (12:15)
[2019-12-03] MEDS ORDERED: ONDANSETRON 4MG/2ML VIAL (J2405) IV PRN ×2 (12:15→13:00)
[2019-12-03] MEDS ORDERED: fentaNYL 100 MCG/2 ML INJECTION (J3010) IV PRN (12:15)
[2019-12-03] MEDS ORDERED: LR 1,000 ML IV SCH (12:15)
[2019-12-03] MEDS ORDERED: PERCOCET 5MG/325MG TAB PO PRN (13:00)
[2019-12-03] MEDS ORDERED: ACETAMINOPHEN TAB 650MG DOSE (2X325MG) PO PRN (13:00)
--- NOTE | 2019-12-03 14:39 | IPNPDOC ---
Subjective Date Seen The patient was seen on 12/03/19. Subjective Chief Complaint/HPI I saw Mr. Allen after his procedure. He was still pretty sleepy from the anesthesia. I was not able to get any history from him. I did speak briefly to Dr. Wood who reported that the procedure went well, but took a little longer and therefore had a little more blood loss than anticipated. He estimated blood loss 600 mL. Nursing had no acute concerns once he got back to the floor. General: Reports: ROS Unobtainable Objective Physical Examination General Exam: Positive: No Acute Distress; Negative: Alert (resting comfortably, but not easily arousable (probably anesthetic effect)) ENT Exam: Positive: Mucous membr. moist/pink Neck Exam: Negative: Lymphadenopathy Chest Exam: Positive: Clear to auscultation, Diminished Heart Exam: Positive: Rate Normal, Normal S1, Normal S2, Murmurs (was a soft, likely aortic, systolic murmur noted at left upper sternal border) Telemetry: Positive: Sinus Abdomen Exam: Positive: Normal bowel sounds, Soft; Negative: Tenderness Extremity Exam: Positive: Other (the dressing on his hip shows some persistent oozing, but is generally dry); Negative: Edema Assessment /Plan Problems (1) Hip fracture, right Status: Acute Response to Treatment: Controlled Discussed With: Nurse, Data Warehouse Administrator, Patient Problem Text: Today is day of operation. Ortho is managing his: pain, rehabilitation, anticoagulation, and bowel care. (2) Acute blood loss as cause of postoperative anemia Status: Acute Problem Text: He has chronic (presumably inflammatory) anemia. He has some acute blood loss from the surgery on top of that. At present, even with CAD, he is not in the transfusion range. We should monitor this carefully, because he is more vulnerable to an ischemic insult. (3) Dementia Status: Chronic Response to Treatment: Stable Problem Text: It's reported that his baseline is answering simple questions only. (4) CAD (coronary artery disease) Problem Text: He has known coronary artery disease. This seems to be no acute issues in the immediate postoperative period. Will continue to monitor him carefully. 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 He is on gentle hydration because he is not eating or drinking right now. We'll need to monitor that carefully. (7) Impaired glucose tolerance Status: Chronic Problem Text: He has a hemoglobin A1c of 5.7. We should be aware of this as we reordered his diet once he is awake enough to eat again. (8) RSUS (obstructive sleep apnea) Status: Chronic Problem Text: He is not currently using CPAP because we'll leave her on secondary to his dementia. This is probably why he is waking from anesthesia more slowly. Plan/VTE VTE Prophylaxis Ordered?: Yes (anticoagulated through orthopedics) VS, I&O, 24H, Fishbone Vital Signs/I&O Vital Signs Date Time Temp Pulse Resp B/P (MAP) Pulse Ox O2 Delivery O2 Flow Rate FiO2 12/03/19 14:33 97.3 68 18 111/53 (72) 96 Nasal Cannula 2.0 I&O- Last 24 Hours up to 6 AM 12/03/19 06:00 Intake Total 194 ml Output Total 0 ml Balance 194 ml Laboratory Data 24H LABS Laboratory Tests 2 12/03/19 05:22: Immature Granulocyte % (Auto) 0.6, Neutrophils (%) (Auto) 72.7H, Lymphocytes (%) (Auto) 10.3L, Monocytes (%) (Auto) 14.3H, Eosinophils (%) (Auto) 1.5, Basophils (%) (Auto) 0.6, Neutrophils # (Auto) 6.3, Lymphocytes # (Auto) 0.9L, Monocytes # (Auto) 1.2H, Eosinophils # (Auto) 0.1, Basophils # (Auto) 0.1, Nucleated Red Blood Cells % (auto) 0.0, Anion Gap 7L, Glomerular Filtration Rate 56.6, Calcium Level 7.7L, Magnesium Level 2.1 12/03/19 11:54: Nucleated Red Blood Cells % (auto) 0.0 CBC/BMP Laboratory Tests 12/03/19 05:22 12/03/19 11:54 Fritz Jackson MD Dec 03, 2019 2:39 pm
[2019-12-03] MEDS: ceFAZolin SOD 2 GM in IV 1 EA IV SCH ×2 (15:56→22:08)
--- NOTE | 2019-12-03 16:14 | REP ---
Status post ORIF with trochanteric nail and intramedullary chaparro placement right femur. Six spot views were obtained in my [place] using a portable C-arm device. 5 minutes 12 seconds of fluoroscopy time was provided Dr. Curtis Wood for the procedure. The previously described fracture has been reduced. Electronically Signed by Elmer Hdz DO 12/03/2019 04:22 P
[2019-12-04] VITALS (9 sets, daily range): BP systolic 98–123; BP diastolic 54–86
[2019-12-04] MEDS: D5W/0.45% SODIUM CHLORIDE 1,000 ML IV SCH ×2 (00:20→17:00)
[2019-12-04] MEDS: MORPHINE 2 MG/ML 1ML VIAL (J2270) IV PRN (03:52)
[2019-12-04] MEDS: ceFAZolin SOD 2 GM in IV 1 EA IV SCH (03:53)
--- NOTE | 2019-12-04 06:57 | CR ---
DATE OF CONSULTATION: 12/03/2019 CHIEF COMPLAINT: Right hip fracture. HISTORY OF PRESENT ILLNESS: This 89-year-old gentleman had a mechanical fall while at [facility]. He was getting into a wheelchair. He has a history of dementia and multiple medical comorbidities but is a previous ambulator who was accompanied in the room when I saw him this morning by his family members; daughter and son-in-law. He is not communicative. He was at the alf for approximately three days and unfortunately then fell trying to get into the wheelchair which slipped out from under him or he slipped off of it. Imaging studies reflect a significantly comminuted right hip fracture reversibility with subtrochanteric extension. PAST MEDICAL HISTORY: 1. Severe dementia. 2. Coronary artery disease status post bypass. 3. Chronic atrial fibrillation. 4. Diastolic congestive heart failure. 5. Valvular sclerosis. 6. History of gastrointestinal (GI) bleed. 7. Gastritis. 8. Diverticulosis. PAST SURGICAL HISTORY: 1. Resection of basal cell carcinoma. 2. Bilateral knee replacement done in [place]. 3. History of heart surgery. ALLERGIES: MICHAEL INHIBITORS, BETA-BLOCKERS, ATENOLOL and MEMANTINE. MEDICATIONS: - aspirin - benazepril - Lasix - potassium - quetiapine - sertraline FAMILY HISTORY: Not contributory. SOCIAL HISTORY: Resident of alf. Does not drink or smoke. 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 REVIEW OF SYSTEMS: Unable to complete. CLINICAL EXAMINATION: The patient could not participate in clinical examination. He was alert. He is normocephalic, nontraumatic, not short of breath. No abdominal distension. RIGHT LOWER EXTREMITY: Rotated externally, left lower extremity well-aligned. No effusion present either knee. Soft, nontender calves bilaterally. Warm, well-perfused lower extremity. IMPRESSION: Comminuted proximal femoral fracture. RECOMMENDATIONS: I talked to the family members about surgery. I talked about operative and nonoperative care. Because the patient is an ambulator the family agreed that they would like to see him be able to ambulate again. We talked about fixing the fracture with an intramedullary device in open versus closed reduction because of the comminution. We completed consent document which was signed by his daughter. They want to proceed. The patient had been nothing by mouth coordinated with the hospitalist and the operating room for surgical intervention.
[2019-12-04 07:02] LABS: BASO % 0.1 % (0.0-1.0); HEMATOCRIT 23.7 % (42.0-52.0); HEMOGLOBIN 7.7 g/dl (13.5-17.5); LYMPH # 1.7 10^3/uL (1.5-5.0); MEAN CORPUSCULAR HEMOGLOBIN 31.8 pg (27.0-33.0); MEAN CORPUSCULAR HGB CONC 32.5 g/dl (32.0-36.5); MEAN CORPUSCULAR VOLUME 97.9 fl (80.0-96.0); MONO % 14.4 % (0.0-5.0); NEUTROPHILS # 12.5 10^3/uL (1.5-8.5); NEUTROPHILS % 74.4 % (36.0-66.0); PLATELET COUNT, AUTOMATED 173 10^3/uL (150-450); RED BLOOD COUNT 2.42 10^6/uL (4.30-6.10); WHITE BLOOD COUNT 16.8 10^3/uL (4.0-10.0)
[2019-12-04 07:21] LABS: CALCIUM LEVEL 7.9 MG/DL (8.8-10.2); CREATININE FOR GFR 2.88 MG/DL (0.70-1.30); GLOMERULAR FILTRATION RATE 22.2 (>35); MAGNESIUM LEVEL 2.2 MG/DL (1.8-2.4)
[2019-12-04 07:25] LABS: MONO # 2.4 10^3/uL (0.0-0.8)
[2019-12-04] MEDS: MOM 30ML SUSPENSION UDC PO SCH ×3 (08:31→09:00)
[2019-12-04] MEDS: SERTRALINE 100 MG TAB PO SCH ×2 (08:33→09:00)
[2019-12-04] MEDS: MULTIVITAMINS/MINERALS THERAP 1 TAB PO SCH ×2 (08:33→09:00)
[2019-12-04] MEDS: QUEtiapine FUMARATE 25 MG TAB PO SCH ×5 (08:33→21:00)
[2019-12-04] MEDS: DONEPEZIL 5 MG TAB PO SCH ×2 (08:33→09:00)
--- NOTE | 2019-12-04 09:31 | REP ---
Portable chest x-ray: Single view. History: Desaturations. Comparison chest x-ray: December 02, 2019. Findings: A bipolar pacemaker remains in place via the left side. Median sternotomy wires are seen. Mild cardiomegaly is observed. Oxygen delivery tubing is seen. The patient is out mandible overlies the left lung apex. Pleural angles are sharp. No infiltrate is seen. Impression: No infiltrate noted. Cardiomegaly with pacemaker. Electronically Signed by Nicholas Nick MD 12/04/2019 09:22 A
--- NOTE | 2019-12-04 09:40 | IPNPDOC ---
Subjective Date Seen The patient was seen on 12/04/19. Subjective Chief Complaint/HPI When I saw the pt this morning, nursing was without new concerns. Pt had been intermittently agitated but did settle down with instruction. Shortly after I left the floor I was notified that the pts heartrate increased and became irregular and his O2 needed to be titrated to keep his sats 88-92% (pt didn't have O2 on when I entered the room, I replaced it before I left and informed nursing who was present, he also had taken off his pulse oximeter - she was unaware of this but did go get a replacement). General: Reports: ROS Unobtainable Objective Physical Examination General Exam: Positive: Alert, Mild Distress (agitation); Negative: Cooperative ENT Exam: Negative: Mucous membr. moist/pink Neck Exam: Positive: Supple Chest Exam: Positive: Clear to auscultation, Diminished Heart Exam: Positive: Rate Normal, Normal S1, Normal S2 Abdomen Exam: Positive: Normal bowel sounds, Soft; Negative: Tenderness Extremity Exam: Negative: Edema Neuro Exam: Negative: Normal Speech Psych Exam: Negative: Mental status NL, Mood NL Assessment /Plan Problems (1) Acute renal failure Status: Acute Response to Treatment: Stable, Worse Problem Specific Plan: Monitor Clinically, Repeat Labs Problem Text: baseline cr 1.2 12/03 49/2.9 12/02 33/1.3 12/03 UA -LE/nit, cathed UCX P 12/03 - B renal US/CXR (2) Acute blood loss as cause of postoperative anemia Status: Acute Response to Treatment: Worse Discussed With: Nurse Problem Specific Plan: Monitor Clinically, Repeat Labs Problem Text: 2 bleeding at surgical wound site baseline hgb 12 12/03 7.7, tx 1u 11/04 9.5 ordered a sitter so that the IV can be successfully maintained. (3) Afib Status: Chronic Problem Specific Plan: Monitor Clinically Problem Text: 12/03 tx to PCU 2 AF RVR 99; rivarox held 2 active bleeding at surgical site He has a known h/o A Fib and has been as an oupt on ASA for this presumably d/t fall risk. He is now on Xarelto 10 mg daily post operatively. (4) Chronic diastolic (congestive) heart failure Status: Chronic Response to Treatment: Stable Problem Specific Plan: Monitor Clinically Problem Text: Appears clinically dry this morning, he is not an any diuretics, does have IVF ordered. Monitor with transfusion of 1 unit pRBCs. (5) RUSS (obstructive sleep apnea) Status: Chronic Response to Treatment: Stable Problem Specific Plan: Monitor Clinically (6) Dementia Status: Chronic Response to Treatment: Stable Problem Specific Plan: Monitor Clinically Problem Text: c acute delirium-on HD quet 25 TID, donep 10 QHS, sert 100 12/03 required amber 2 IV prn (7) Hip fracture, right Status: Acute Response to Treatment: Stable Problem Specific Plan: Monitor Clinically Problem Text: 12/03 AM sp R IM chaparro-Wood (8) Fall Status: Acute Plan/VTE VTE Prophylaxis Ordered?: Yes VS, I&O, 24H, Fishbone Vital Signs/I&O Vital Signs Date Time Temp Pulse Resp B/P (MAP) Pulse Ox O2 Delivery O2 Flow Rate FiO2 12/04/19 08:32 20 Nasal Cannula 2.0 12/04/19 05:30 98.1 82 109/57 (74) 99 I&O- Last 24 Hours up to 6 AM 12/04/19 06:00 Intake Total 1770 ml Output Total 700 ml Balance 1070 ml Laboratory Data 24H LABS Laboratory Tests 2 12/03/19 11:54: Nucleated Red Blood Cells % (auto) 0.0 12/04/19 06:38: Nucleated Red Blood Cells % (auto) 0.0, Immature Granulocyte % (Auto) 1.1, Mariola trophils (%) (Auto) 74.4H, Lymphocytes (%) (Auto) 10.0L, Monocytes (%) (Auto) 14.4H, Eosinophils (%) (Auto) 0.0, Basophils (%) (Auto) 0.1, Neutrophils # (Auto) 12.5H, Lymphocytes # (Auto) 1.7, Monocytes # (Auto) 2.4H, Eosinophils # (Auto) 0.0, Basophils # (Auto) 0.0, Anion Gap 11, Glomerular Filtration Rate 22.2L, Calcium Level 7.9L, Magnesium Level 2.2 CBC/BMP Laboratory Tests 12/03/19 11:54 12/04/19 06:38 LALIT TRUJILLO PA-C Dec 04, 2019 09:40 Ronnie Valadez M.D. Dec 04, 2019 17:03
[2019-12-04] MEDS ORDERED: LORazepam 2 MG/ML VIAL (J2060) As Ordered ONE (10:37)
[2019-12-04] MEDS: LORazepam 2 MG/ML VIAL (J2060) IM PRN (10:41)
--- NOTE | 2019-12-04 11:53 | REP ---
URINARY TRACT SONOGRAPHY: HISTORY: Acute renal failure. COMPARISON: CT study, November 27, 2019. SONOGRAPHIC FINDINGS: Scanning at the level urinary bladder shows no abnormality. Filled bladder volume is calculated at 133 mL. Renal cortical echogenicity pattern is normal bilaterally. There is no evidence of hydronephrosis on either side. There are multiple bilateral cysts. At mid pole level on the right, there is a 4.5 x 4.5 x 4.0 cm cyst. At the upper pole on the right, there is a 2.8 x 2.8 x 2.5 cm cyst. On the left at the lower pole, there is a 4.1 x 3.5 x 3.6 cm cyst. In the upper pole, there are two cysts measuring 3.6 and 2.5 cm in greatest diameter, respectively. IMPRESSION: Bilateral renal cysts. Otherwise, negative urinary tract sonography. No hydronephrosis is seen. Electronically Signed by Nicholas Nick MD 12/04/2019 12:37 P
[2019-12-04 16:51] LABS: APPEARANCE, URINE CLOUDY (CLEAR); BACTERIA, URINE AUTO 1+ (NEGATIVE); BILIRUBIN, URINE AUTO NEGATIVE (NEGATIVE); BLOOD, URINE BLOOD 3+ (NEGATIVE); COLOR, URINE YELLOW (YELLOW); GLUCOSE, URINE (UA) AUTO NEGATIVE (NEGATIVE); KETONE, URINE AUTO TRACE mg/dL (NEGATIVE); LEUKOCYTE ESTERASE, URINE AUTO NEGATIVE (NEGATIVE); NITRITE, URINE AUTO NEGATIVE (NEGATIVE); PROTEIN, URINE AUTO NEGATIVE (NEGATIVE); RBC, URINE AUTO 130 /HPF (0-3); SPECIFIC GRAVITY URINE AUTO 1.019 (1.002-1.035); SQUAMOUS EPITHELIAL CELL UR AU 0 /HPF (0-6); UROBILINOGEN, URINE AUTO 0.2 mg/dL (0.0-2.0); WBC, URINE AUTO 7 /HPF (0-3)
[2019-12-04 17:55] LABS: BASO % 0.2 % (0.0-1.0); HEMATOCRIT 24.8 % (42.0-52.0); HEMOGLOBIN 8.1 g/dl (13.5-17.5); LYMPH # 1.5 10^3/uL (1.5-5.0); LYMPH % 9.4 % (24.0-44.0); MEAN CORPUSCULAR HEMOGLOBIN 31.6 pg (27.0-33.0); MEAN CORPUSCULAR HGB CONC 32.7 g/dl (32.0-36.5); MEAN CORPUSCULAR VOLUME 96.9 fl (80.0-96.0); MONO % 14.1 % (0.0-5.0); PLATELET COUNT, AUTOMATED 161 10^3/uL (150-450); RED BLOOD COUNT 2.56 10^6/uL (4.30-6.10); WHITE BLOOD COUNT 15.9 10^3/uL (4.0-10.0)
[2019-12-04 18:19] LABS: ALBUMIN 2.8 GM/DL (3.2-5.2); CALCIUM LEVEL 7.8 MG/DL (8.8-10.2); CREATININE FOR GFR 2.93 MG/DL (0.70-1.30); GLOMERULAR FILTRATION RATE 21.8 (>35); PHOSPHORUS LEVEL 5.3 MG/DL (2.5-4.9); POTASSIUM SERUM 5.2 MEQ/L (3.5-5.1); TROPONIN I 0.18 NG/ML (< 0.10)
[2019-12-04 18:44] LABS: MONO # 2.3 10^3/uL (0.0-0.8)
[2019-12-04] MEDS ORDERED: SOD POLYSTYRENE SULFONATE SUSP 30 GM/120 ML ENEMA PR ONE (20:45)
[2019-12-05] VITALS (11 sets, daily range): BP systolic 98–114; BP diastolic 50–65
[2019-12-05] MEDS: D5W/0.45% SODIUM CHLORIDE 1,000 ML IV SCH (04:55)
[2019-12-05 05:57] LABS: BASO % 0.1 % (0.0-1.0); EOS % 0.1 % (0.0-3.0); LYMPH # 1.1 10^3/uL (1.5-5.0); LYMPH % 9.6 % (24.0-44.0); MEAN CORPUSCULAR HEMOGLOBIN 32.3 pg (27.0-33.0); MEAN CORPUSCULAR HGB CONC 33.7 g/dl (32.0-36.5); MEAN CORPUSCULAR VOLUME 95.9 fl (80.0-96.0); MONO # 1.6 10^3/uL (0.0-0.8); MONO % 13.5 % (0.0-5.0); NEUTROPHILS # 8.7 10^3/uL (1.5-8.5); NEUTROPHILS % 75.7 % (36.0-66.0); PLATELET COUNT, AUTOMATED 156 10^3/uL (150-450); RED BLOOD COUNT 2.17 10^6/uL (4.30-6.10); WHITE BLOOD COUNT 11.5 10^3/uL (4.0-10.0)
[2019-12-05 05:58] LABS: HEMATOCRIT 20.8 % (42.0-52.0)
[2019-12-05 06:10] LABS: ALBUMIN 2.4 GM/DL (3.2-5.2); ALT/SGPT < 6 U/L (12-78); BILIRUBIN,TOTAL 0.5 MG/DL (0.2-1.0); BLOOD UREA NITROGEN 59 MG/DL (7-18); CALCIUM LEVEL 7.6 MG/DL (8.8-10.2); CARBON DIOXIDE LEVEL 24 MEQ/L (21-32); CHLORIDE LEVEL 110 MEQ/L (98-107); CREATININE FOR GFR 2.46 MG/DL (0.70-1.30); GLOMERULAR FILTRATION RATE 26.6 (>35); GLUCOSE, FASTING 117 MG/DL (70-100); NT-PRO BNP 10962 PG/ML (<450); POTASSIUM SERUM 4.3 MEQ/L (3.5-5.1); SODIUM LEVEL 139 MEQ/L (136-145); TOTAL PROTEIN 5.7 GM/DL (6.4-8.2)
[2019-12-05] MEDS ORDERED: XARE10TA PO (07:31)
[2019-12-05] MEDS ORDERED: PERC5TAB12 PO (07:31)
--- NOTE | 2019-12-05 08:07 | RO ---
DATE OF PROCEDURE: 12/03/2019 PREOPERATIVE DIAGNOSIS: Right hip comminuted fracture with intertrochanteric subtrochanteric extension reverse obliquity type. POSTOPERATIVE DIAGNOSIS: Right hip comminuted fracture with intertrochanteric subtrochanteric extension reverse obliquity type. PROCEDURE PERFORMED: Open reduction and intramedullary nailing of the right femur/hip/ SURGEON: Dr. Curtis Wood. INSULATION HELPER: ANESTHESIA: General. ESTIMATED BLOOD LOSS: 600 mL, replaced with crystalloid. COMPLICATIONS: None. COMPONENTS USED: Include a Synthes TFN nail system 11 mm x 400 mm,105 mm cephalic component, 125 degree nail with appropriate locking screws. CONSENT: Consent was reviewed with the patient's family and they agreed to proceed with the surgery. For consent details refer to the consult. DESCRIPTION OF PROCEDURE: Identified holding area, site and side verified, brought to the operating room. Once anesthesia was administered, he was positioned on the fracture table in the scissor position for exposure of the right lower extremity. He was sterilely prepped and draped after we utilized fluoroscopy to reduce the fracture. Next the line of the incision at that the greater trochanter was outlined with a marking pen, infiltrated with 0.25% Marcaine with epinephrine. I made the incision with a 10 blade, developed down the lateral fascia split, access to the greater trochanter obtained. The guidewire was placed on the greater trochanter, positioned, verified fluoroscopically. Guidewire advanced into the greater trochanter verified fluoroscopically. Next, I overdrilled the guidewire using the step drill and the soft tissue protector. Once this was accomplished, ball-tipped guidewire was obtained and passed. Because of the reverse obliquity and the involvement of the lesser trochanter and comminution, the guidewire passed medially. I was not able to be below the bend to connect the guidewire to the distal fragment. Next using fluoroscopy, I plotted an incision at the fracture site which fortuitously was in alignment with placement of the cephalic portion of the nail. Next, I opened the skin and lateral fascia and then I was able to access the bone fragments. Next, I utilized the cannulated reduction finger. I was still not able to direct the guidewire into the distal fragment, so I then used the finger to access the proximal end of the fracture, passed the guidewire retrograde back out the tip of the greater trochanter. I was then able to direct the tip of the guidewire distally into the distal fragment. I was then able to pass the reduction finger device into the distal fragment and secure the two fragments. Then I was able to exchange the guidewire for a new non-bend ball-tipped guidewire with the ball directed distally as required for this nailing system. I passed the guidewire to the top of the knee replacement radiographically on fluoroscopy. Next, I utilized reduction clamps to clamp the fracture fragments anatomically at this stage. Once this was accomplished I was able to ream over the guidewire through a 12.5 reamer. Once this was accomplished I measured for 400 mm nail. Next, I passed the for the 400 mm nail into the femoral canal traversing the fracture. We utilized the long nail. Once this was accomplished, I positioned the targeting arm and placed the cephalic guide against the lateral femur and I drilled for the cephalic component. The position of this guidewire was verified fluoroscopically in the AP lateral plane and then measured for a [address] a 105 mm cephalic component. Next, this was locked into place, the position verified fluoroscopically in the AP and lateral plane. I removed the guidewire and attention was turned distally for the locking screws. Fluoroscopy was positioned to obtained perfect circles. I then drilled the oval and the proximal locking holes. I placed the appropriate locking screws distally and verified their position fluoroscopically. Next we got final fluoroscopic images distally at the fracture site and at the hip. The reduction for this comminuted fracture was nearly anatomic and acceptable. Next we irrigated. I closed the fascia with interrupted 0 Vicryl stitch, the dermis with interrupted 0 Vicryl stitch and ralph. We applied dressings. I participated in disassembly of the fracture table and movement of the patient to the bed portion of the fracture table and then the patient was moved to the hospital bed and moved to the recovery room in good condition. For further details please refer to medical record.
[2019-12-05] MEDS: DONEPEZIL 5 MG TAB PO SCH (09:00)
[2019-12-05] MEDS: MOM 30ML SUSPENSION UDC PO SCH (09:00)
[2019-12-05] MEDS: QUEtiapine FUMARATE 25 MG TAB PO SCH ×3 (09:00→20:01)
[2019-12-05] MEDS: MULTIVITAMINS/MINERALS THERAP 1 TAB PO SCH (09:00)
[2019-12-05] MEDS: SERTRALINE 100 MG TAB PO SCH (09:00)
--- NOTE | 2019-12-05 14:25 | REP ---
CT BRAIN WITHOUT CONTRAST: HISTORY: Swallowing difficulties. Altered mental status. Comparison head CT study December 02, 2019. CT FINDINGS: Preliminary digital artificial glass eye maker radiograph is unremarkable. Bone window settings demonstrate an intact bony calvarium. No bony destructive lesion is seen. Visualized paranasal sinuses are clear. There is moderate vascular calcification in the distal internal carotid and distal vertebral arteries. No intraorbital abnormality is seen. On soft tissue window settings, there is moderate generalized volume loss. There is a tiny old lacunar infarct in the left basal ganglia which is unchanged. There is no evidence of intracranial hemorrhage. No mass, infarct or midline shift is seen. No extra-axial fluid collection is noted. IMPRESSION: Moderate generalized atrophy, vascular calcification, old lacunar infarct left basal ganglia. No acute intracranial abnormality. Electronically Signed by Nicholas Nick MD 12/05/2019 04:29 P
[2019-12-05 14:37] LABS: BASO % 0.1 % (0.0-1.0); EOS % 0.2 % (0.0-3.0); HEMATOCRIT 23.6 % (42.0-52.0); LYMPH # 1.1 10^3/uL (1.5-5.0); LYMPH % 9.3 % (24.0-44.0); MEAN CORPUSCULAR HEMOGLOBIN 31.6 pg (27.0-33.0); MEAN CORPUSCULAR HGB CONC 33.9 g/dl (32.0-36.5); MEAN CORPUSCULAR VOLUME 93.3 fl (80.0-96.0); MONO # 1.6 10^3/uL (0.0-0.8); MONO % 12.9 % (0.0-5.0); NEUTROPHILS # 9.2 10^3/uL (1.5-8.5); NEUTROPHILS % 76.2 % (36.0-66.0); PLATELET COUNT, AUTOMATED 161 10^3/uL (150-450); RED BLOOD COUNT 2.53 10^6/uL (4.30-6.10); WHITE BLOOD COUNT 12.1 10^3/uL (4.0-10.0)
--- NOTE | 2019-12-05 16:55 | IPNPDOC ---
Subjective Date Seen The patient was seen on 12/05/19. Subjective Chief Complaint/HPI improved lethargy, but pooling meds in mouth Constitutional: Denies: Chills Eyes: Denies: Pain ENT: Denies: Head Aches Skin: Denies: Rash, Lesions Pulmonary: Denies: Dyspnea, Cough Cardiovascular: Denies: Chest Pain, Palpitations Gastrointestinal: Denies: Nausea, Vomiting Objective Physical Examination General Exam: Positive: Alert, Mild Distress (agitation); Negative: Cooperative ENT Exam: Negative: Mucous membr. moist/pink Neck Exam: Positive: Supple, JVD (6 cm) Chest Exam: Positive: Clear to auscultation, Diminished Heart Exam: Positive: Rate Normal, Normal S1, Normal S2, Murmurs (3/6 ED loudest R 1 ICS space radiating to apex) Telemetry: Positive: Sinus Abdomen Exam: Positive: Normal bowel sounds, Soft; Negative: Tenderness Extremity Exam: Negative: Edema Neuro Exam: Negative: Normal Speech Psych Exam: Negative: Mental status NL, Mood NL Assessment /Plan Problems (1) Afib Status: Chronic Problem Specific Plan: Monitor Clinically Problem Text: favor + therapeutic LMWH if stable hgb 12/03 tx to PCU 2 AF RVR 99; rivarox held 2 active bleeding at surgical site He has a known h/o A Fib and has been as an oupt on ASA for this presumably d/t fall risk. (2) Chronic diastolic (congestive) heart failure Status: Chronic Response to Treatment: Stable Problem Specific Plan: Monitor Clinically Problem Text: caution c preload reduction [place]severe 12[place] [address] (9413) c mild decomp, held IVF, defer diuresis given no po intake, SBP 100-110 12/04 TTE P (3) Aortic stenosis Status: Chronic Problem Text: 03/2018 last TTE mod , mild AI c preserved EF-favor advanced now, TTE P (4) Dementia Status: Chronic Response to Treatment: Stable Problem Specific Plan: Monitor Clinically Problem Text: c acute delirium-on HD quet 25 TID, donep 10 QHS, sert 100-but not taking 2 dysphagia 12/03 required amber 2 IV prn 12/04 NH3 29 (5) Dysphagia Status: Acute Problem Text: 12/04 given pooling meds, NPO, ST eval ordered 12/05/19 CT head: Moderate generalized atrophy, vascular calcification, old lacunar infarct left basal ganglia. No acute intracranial abnormality. (6) Acute renal failure Status: Acute Response to Treatment: Stable, Worse Problem Specific Plan: Monitor Clinically, Repeat Labs Problem Text: baseline cr 1.2 12/04 59/2.5, 4.3 12/03 49/2.9 12/02 33/1.3 12/03 UA -LE/nit, cathed UCX P 12/03 - B renal US/CXR (7) Acute blood loss as cause of postoperative anemia Status: Acute Response to Treatment: Worse Discussed With: Nurse Problem Specific Plan: Monitor Clinically, Repeat Labs Problem Text: 2 bleeding at surgical wound site baseline hgb 12 12/04 8 12/03 7.7, tx 1u 11/04 9.5 ordered a sitter so that the IV can be successfully maintained. (8) RUSS (obstructive sleep apnea) Status: Chronic Response to Treatment: Stable Problem Specific Plan: Monitor Clinically (9) Hip fracture, right Status: Acute Response to Treatment: Stable Problem Specific Plan: Monitor Clinically Problem Text: 12/03 AM sherman Lux (10) Sick sinus syndrome Status: Chronic Problem Text: appropriate pacer function follows with [place] (11) CAD (coronary artery disease) Status: Chronic Response to Treatment: Stable Problem Text: no s/s active ischemia Plan/VTE VTE Prophylaxis Ordered?: Yes (anticoagulated through orthopedics) VS, I&O, 24H, Fishbone Vital Signs/I&O Vital Signs Date Time Temp Pulse Resp B/P (MAP) Pulse Ox O2 Delivery O2 Flow Rate FiO2 12/05/19 16:00 2.0 12/05/19 16:00 98.2 85 20 114/56 (75) 96 Nasal Cannula I&O- Last 24 Hours up to 6 AM 12/05/19 06:00 Intake Total 400 ml Output Total 500 ml Balance -100 ml Laboratory Data 24H LABS Laboratory Tests 2 12/04/19 17:42: Immature Granulocyte % (Auto) 1.3, Neutrophils (%) (Auto) 75.0H, Lymphocytes (%) (Auto) 9.4L, Monocytes (%) (Auto) 14.1H, Eosinophils (%) (Auto) 0.0, Basophils (%) (Auto) 0.2, Neutrophils # (Auto) 12.0H, Lymphocytes # (Auto) 1.5, Monocytes # (Auto) 2.3H, Eosinophils # (Auto) 0.0, Basophils # (Auto) 0.0, Nucleated Red Blood Cells % (auto) 0.1H, Anion Gap 7L, Glomerular Filtration Rate 21.8L, Calcium Level 7.8L, Phosphorus Level 5.3H, Troponin I 0.18H, EX-Kef-Y-Type Natriuretic Peptide 9413H, Albumin 2.8L 12/05/19 05:23: Immature Granulocyte % (Auto) 1.0, Neutrophils (%) (Auto) 75.7H, Lymphocytes (%) (Auto) 9.6L, Monocytes (%) (Auto) 13.5H, Eosinophils (%) (Auto) 0.1, Basophils (%) (Auto) 0.1, Neutrophils # (Auto) 8.7H, Lymphocytes # (Auto) 1.1L, Monocytes # (Auto) 1.6H, Eosinophils # (Auto) 0.0, Basophils # (Auto) 0.0, Nucleated Red Blood Cells % (auto) 0.3H, Anion Gap 5L, Glomerular Filtration Rate 26.6L, Calcium Level 7.6L, FX-Hzy-Q-Type Natriuretic Peptide 13448X, Albumin 2.4L, Total Bilirubin 0.5, Aspartate Amino Transf (AST/SGOT) 33, Alanine Aminotransferase (ALT/SGPT) < 6L, Alkaline Phosphatase 70, Total Protein 5.7L, Albumin/Globulin Ratio 0.73L 12/05/19 07:38: Troponin I 0.18H 12/05/19 14:25: Immature Granulocyte % (Auto) 1.3, Neutrophils (%) (Auto) 76.2H, Lymphocytes (%) (Auto) 9.3L, Monocytes (%) (Auto) 12.9H, Eosinophils (%) (Auto) 0.2, Basophils (%) (Auto) 0.1, Neutrophils # (Auto) 9.2H, Lymphocytes # (Auto) 1.1L, Monocytes # (Auto) 1.6H, Eosinophils # (Auto) 0.0, Basophils # (Auto) 0.0, Nucleated Red Blood Cells % (auto) 0.3H, Ammonia 29 CBC/BMP Laboratory Tests 12/04/19 17:42 12/05/19 05:23 12/05/19 14:25 Microbiology Microbiology 3/16/20 Urine Culture, Received Pending Ronnie Valadez M.D. Dec 05, 2019 16:55
[2019-12-05] MEDS: RIVAROXABAN 10 MG TAB (XARELTO) PO SCH (18:00)
[2019-12-06] VITALS (12 sets, daily range): BP systolic 110–142; BP diastolic 53–72
[2019-12-06 05:30] LABS: BASO % 0.1 % (0.0-1.0); EOS # 0.1 10^3/uL (0.0-0.5); EOS % 0.5 % (0.0-3.0); HEMATOCRIT 22.7 % (42.0-52.0); HEMOGLOBIN 7.5 g/dl (13.5-17.5); LYMPH # 0.8 10^3/uL (1.5-5.0); LYMPH % 9.1 % (24.0-44.0); MEAN CORPUSCULAR HEMOGLOBIN 31.4 pg (27.0-33.0); MONO # 1.2 10^3/uL (0.0-0.8); MONO % 12.7 % (0.0-5.0); NEUTROPHILS # 7.1 10^3/uL (1.5-8.5); NEUTROPHILS % 76.4 % (36.0-66.0); PLATELET COUNT, AUTOMATED 145 10^3/uL (150-450); RED BLOOD COUNT 2.39 10^6/uL (4.30-6.10); WHITE BLOOD COUNT 9.3 10^3/uL (4.0-10.0)
[2019-12-06 05:47] LABS: CALCIUM LEVEL 8.2 MG/DL (8.8-10.2); CREATININE FOR GFR 1.52 MG/DL (0.70-1.30); GLOMERULAR FILTRATION RATE 46.4 (>35); POTASSIUM SERUM 3.7 MEQ/L (3.5-5.1)
[2019-12-06] MEDS ORDERED: POTASSIUM CHLORIDE 10 MEQ SR TABLET PO ONE (09:00)
[2019-12-06] MEDS ORDERED: FUROSEMIDE 40 MG/4 ML VIAL (J1940) IV ONE (09:00)
--- NOTE | 2019-12-06 09:31 | IPN ---
DATE: Germain is seen in PCU. He denies chest pain, shortness of breath (SOB). Apparently behavior was unremarkable overnight. PHYSICAL EXAMINATION: Blood pressure 120/68, afebrile. Lungs clear. Heart regular rate and rhythm with 2/6 systolic ejection murmur. Abdomen soft, nontender. He is alert and conversant. LABORATORIES: White count 9.3, hemoglobin 7.5, platelets 145, sodium 146, potassium 3.7, BUN 52, creatinine 1.5, glucose 109, BNP is 17,349. IMPRESSION: 1. Atrial fibrillation. Rate is controlled. Anticoagulation was held due to bleeding at his surgical site. He is still anemic requiring transfusion today. 2. Diastolic congestive heart failure. Still seems volume overloaded. BNP is elevated. I will give him a single dose of furosemide today. Renal function improved with diuresis yesterday. 3. Stenosis. Repeat echocardiogram pending. He is not a surgical candidate, though transcatheter aortic valve replacement (TAVR) would not be outside limits of possibility down the line. 4. Dementia. Continue his current medications. He still needs a sitter. 5. Acute renal failure. Renal function improved with diuresis yesterday. 6. Acute blood loss postop anemia. Will transfuse him a unit of packed red blood cells. 7. Hip fracture. Per orthopedics. 8. Hypernatremia. Oral intake needs to improve, otherwise he will need IV fluids tomorrow.
[2019-12-06] MEDS: MOM 30ML SUSPENSION UDC PO SCH (10:04)
[2019-12-06] MEDS: QUEtiapine FUMARATE 25 MG TAB PO SCH ×3 (10:04→21:00)
[2019-12-06] MEDS: DONEPEZIL 5 MG TAB PO SCH (10:04)
[2019-12-06] MEDS: SERTRALINE 100 MG TAB PO SCH (10:04)
[2019-12-06] MEDS: MULTIVITAMINS/MINERALS THERAP 1 TAB PO SCH (10:04)
[2019-12-06] MEDS: SALIVA SUBSTITUTE(MOUTHKOTE) BTL MT PRN (13:12)
[2019-12-06] MEDS: KCL 10MEQ/100ML SWI (KRUN) 10 MEQ in IV 1 EA IV SCH ×4 (13:12→17:43)
[2019-12-06] MEDS ORDERED: KCL 10MEQ IN STERILE WATER 100ML As Ordered ONE (17:42)
[2019-12-06] MEDS: RIVAROXABAN 10 MG TAB (XARELTO) PO SCH (17:46)
[2019-12-06] MEDS: D5W/0.45% SODIUM CHLORIDE 1,000 ML IV SCH (18:56)
[2019-12-07 06:00] VITALS: BP_SYST 120; BP_SYST 132; BP_DIAS 74; BP_DIAS 79
[2019-12-07 06:34] LABS: BASO % 0.2 % (0.0-1.0); EOS % 0.2 % (0.0-3.0); HEMATOCRIT 28.7 % (42.0-52.0); HEMOGLOBIN 9.2 g/dl (13.5-17.5); LYMPH % 9.7 % (24.0-44.0); MEAN CORPUSCULAR HEMOGLOBIN 30.4 pg (27.0-33.0); MEAN CORPUSCULAR HGB CONC 32.1 g/dl (32.0-36.5); MEAN CORPUSCULAR VOLUME 94.7 fl (80.0-96.0); MONO # 1.2 10^3/uL (0.0-0.8); MONO % 11.4 % (0.0-5.0); NEUTROPHILS # 8.1 10^3/uL (1.5-8.5); PLATELET COUNT, AUTOMATED 192 10^3/uL (150-450); RED BLOOD COUNT 3.03 10^6/uL (4.30-6.10); WHITE BLOOD COUNT 10.7 10^3/uL (4.0-10.0)
[2019-12-07 06:55] LABS: BLOOD UREA NITROGEN 47 MG/DL (7-18); CALCIUM LEVEL 8.4 MG/DL (8.8-10.2); CARBON DIOXIDE LEVEL 28 MEQ/L (21-32); CHLORIDE LEVEL 120 MEQ/L (98-107); CREATININE FOR GFR 1.17 MG/DL (0.70-1.30); GLOMERULAR FILTRATION RATE > 60.0 (>35); GLUCOSE, FASTING 112 MG/DL (70-100); POTASSIUM SERUM 3.4 MEQ/L (3.5-5.1); SODIUM LEVEL 152 MEQ/L (136-145)
[2019-12-07] MEDS: DONEPEZIL 5 MG TAB PO SCH (09:00)
[2019-12-07] MEDS: MOM 30ML SUSPENSION UDC PO SCH (09:00)
[2019-12-07] MEDS: SERTRALINE 100 MG TAB PO SCH (09:00)
[2019-12-07] MEDS: QUEtiapine FUMARATE 25 MG TAB PO SCH ×3 (09:00→20:27)
[2019-12-07] MEDS: MULTIVITAMINS/MINERALS THERAP 1 TAB PO SCH (09:00)
[2019-12-07] MEDS: D5W/0.45% SODIUM CHLORIDE 1,000 ML IV SCH (09:40)
[2019-12-07 14:00] VITALS: BP 125/60
[2019-12-07] MEDS ORDERED: POTASSIUM CHLORIDE INJ 20 MEQ in NS 0.45% 1,000 ML IV SCH (14:30)
--- NOTE | 2019-12-07 14:32 | IPNPDOC ---
Subjective Date Seen The patient was seen on 12/07/19. Subjective Chief Complaint/HPI improved mentation, but poor po Constitutional: Denies: Chills, Fever Pulmonary: Denies: Dyspnea, Cough Cardiovascular: Denies: Chest Pain, Palpitations Gastrointestinal: Denies: Nausea, Vomiting Objective Physical Examination General Exam: Positive: Alert, Mild Distress (agitation); Negative: Cooperative ENT Exam: Negative: Mucous membr. moist/pink Neck Exam: Positive: Supple, JVD (6 cm) Chest Exam: Positive: Clear to auscultation, Diminished Heart Exam: Positive: Rate Normal, Normal S1, Normal S2, Murmurs (3/6 ED loudest R 1 ICS space radiating to apex) Telemetry: Positive: Sinus Abdomen Exam: Positive: Normal bowel sounds, Soft; Negative: Tenderness Extremity Exam: Negative: Edema Neuro Exam: Negative: Normal Speech Psych Exam: Negative: Mental status NL, Mood NL Assessment /Plan Problems (1) Comfort measures only status Status: Acute Problem Text: 12/07/19 1500 p long discussion c HCP, daughter Chase Calderon, who p discussion c rest of family 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 No acute intracranial abnormality. (3) Afib Status: Chronic Problem Specific Plan: Monitor Clinically Problem Text: favor + therapeutic LMWH if stable hgb, continue to hold DOAC given continued tx requirement 12/03 tx to PCU 2 AF RVR 99; rivarox held 2 active bleeding at surgical site He has a known h/o A Fib and has been as an oupt on ASA for this presumably d/t fall risk. (4) Chronic diastolic (congestive) heart failure Status: Chronic Response to Treatment: Stable Problem Specific Plan: Monitor Clinically Problem Text: caution c preload reduction given mod-severe 12/05 47967 12[place] [address] (9413) c mild decomp, held IVF, defer diuresis given no po intake, SBP 100-110 12/04 TTE P (5) Aortic stenosis Status: Chronic Problem Text: 03/2018 last TTE mod , mild AI c preserved EF-favor advanced now, TTE P (6) Dementia Status: Chronic Response to Treatment: Stable Problem Specific Plan: Monitor Clinically Problem Text: c acute delirium-on HD quet 25 TID, donep 10 QHS, sert 100-but not taking 2 dysphagia 12/03 required amber 2 IV prn 12/04 NH3 29 (7) Acute renal failure Status: Acute Response to Treatment: Stable, Worse Problem Specific Plan: Monitor Clinically, Repeat Labs Problem Text: back to baseline cr 1.2 12/03 49/2.9 12/03 UA -LE/nit, cathed UCX P 12/03 - B renal US/CXR (8) Acute blood loss as cause of postoperative anemia Status: Acute Response to Treatment: Worse Discussed With: Nurse Problem Specific Plan: Monitor Clinically, Repeat Labs Problem Text: 2 bleeding at surgical wound site baseline hgb 12 12/06 9.2 12/05 7.2, tx 1u 12/04 8, tx 1u 12/03 7.7, tx 1u 11/04 9.5 ordered a sitter so that the IV can be successfully maintained. (9) RUSS (obstructive sleep apnea) Status: Chronic Response to Treatment: Stable Problem Specific Plan: Monitor Clinically (10) Hip fracture, right Status: Acute Response to Treatment: Stable Problem Specific Plan: Monitor Clinically Problem Text: 12/03 AM sherman Lux (11) Sick sinus syndrome Status: Chronic Problem Text: appropriate pacer function follows with Isreal (12) CAD (coronary artery disease) Status: Chronic Response to Treatment: Stable Problem Text: no s/s active ischemia Plan/VTE VTE Prophylaxis Ordered?: Yes (anticoagulated through orthopedics) VS, I&O, 24H, Fishbone Vital Signs/I&O Vital Signs Date Time Temp Pulse Resp B/P (MAP) Pulse Ox O2 Delivery O2 Flow Rate FiO2 12/07/19 09:00 1.0 12/07/19 06:00 97.9 78 17 120/74 (89) 97 12/06/19 22:00 Nasal Cannula I&O- Last 24 Hours up to 6 AM 12/07/19 06:00 Intake Total 931 ml Output Total 3300 ml Balance -2369 ml Laboratory Data 24H LABS Laboratory Tests 2 12/07/19 06:13: Immature Granulocyte % (Auto) 2.5, Neutrophils (%) (Auto) 76.0H, Lymphocytes (%) (Auto) 9.7L, Monocytes (%) (Auto) 11.4H, Eosinophils (%) (Auto) 0.2, Basophils (%) (Auto) 0.2, Neutrophils # (Auto) 8.1, Lymphocytes # (Auto) 1.0L, Monocytes # (Auto) 1.2H, Eosinophils # (Auto) 0.0, Basophils # (Auto) 0.0, Nucleated Red Blood Cells % (auto) 0.6H, Anion Gap 4L, Glomerular Filtration Rate > 60.0, Ca lcium Level 8.4L CBC/BMP Laboratory Tests 12/07/19 06:13 Microbiology Microbiology 12/04/19 Urine Culture - Final, Complete Ronnie Valadez M.D. Dec 07, 2019 14:32
[2019-12-07] MEDS ORDERED: KCL 20MEQ IN 0.45NS 1000ML 1,000 ML IV SCH (14:45)
[2019-12-07] MEDS: MORPHINE 2 MG/ML 1ML VIAL (J2270) IV PRN (14:51)
[2019-12-07] MEDS ORDERED: HYOSCYAMINE SULFATE 0.125 MG SUBL TABLET PO PRN (15:45)
[2019-12-07] MEDS ORDERED: ONDANSETRON 4MG/2ML VIAL (J2405) IV PRN (15:45)
[2019-12-07] MEDS ORDERED: SCOPOLAMINE 1MG TRANSDERMAL PATCH TOP PRN (15:45)
[2019-12-07] MEDS ORDERED: MORPHINE 2 MG/ML 1ML VIAL (J2270) IV PRN (15:45)
[2019-12-07] MEDS ORDERED: BISACODYL 10 MG SUPP PR PRN (15:45)
--- NOTE | 2019-12-07 17:41 | ECGEPIP ---
[facility] Test Date: 2019-12-04 Pat Name: EDMUNDO VOSS Department: Room: [place] [address] Gender: Male Rn Cardiovascular: FADUMO : 1930 Requested By: LALIT Wharton PA-C Order Number: [id number] Reading MD: Bo Escobar Measurements Intervals [place] Rate: 88 P: OR: 0 QRS: 10 QRSD: 154 T: 226 QT: 441 QTc: 536 Interpretive Statements ATRIAL FIBRILLATION INTRAVENTRICULAR CONDUCTION DELAY LAST 2 TRACINGS REVEALED VENTRICULAR PACING ACTIVITIES Electronically Signed on 12-07-2019 17:41:01 EDT by Bo Escobar
[2019-12-07] MEDS: MORPHINE 10MG/0.5ML ORAL CONCENTRATE SOLUTION U/D SL PRN (21:10)
[2019-12-08] MEDS: MORPHINE 10MG/0.5ML ORAL CONCENTRATE SOLUTION U/D SL PRN ×4 (01:21→17:11)
[2019-12-08] MEDS: D5W/0.45% SODIUM CHLORIDE 1,000 ML IV SCH (04:54)
[2019-12-08 05:56] LABS: BASO % 0.2 % (0.0-1.0); EOS % 0.2 % (0.0-3.0); HEMATOCRIT 30.2 % (42.0-52.0); HEMOGLOBIN 9.6 g/dl (13.5-17.5); LYMPH # 1.2 10^3/uL (1.5-5.0); LYMPH % 11.2 % (24.0-44.0); MEAN CORPUSCULAR HEMOGLOBIN 30.7 pg (27.0-33.0); MEAN CORPUSCULAR HGB CONC 31.8 g/dl (32.0-36.5); MEAN CORPUSCULAR VOLUME 96.5 fl (80.0-96.0); MONO # 1.4 10^3/uL (0.0-0.8); MONO % 12.5 % (0.0-5.0); NEUTROPHILS % 72.7 % (36.0-66.0); PLATELET COUNT, AUTOMATED 220 10^3/uL (150-450); RED BLOOD COUNT 3.13 10^6/uL (4.30-6.10)
[2019-12-08 06:19] LABS: BLOOD UREA NITROGEN 42 MG/DL (7-18); CALCIUM LEVEL 8.5 MG/DL (8.8-10.2); CARBON DIOXIDE LEVEL 29 MEQ/L (21-32); CHLORIDE LEVEL 124 MEQ/L (98-107); CREATININE FOR GFR 1.13 MG/DL (0.70-1.30); GLOMERULAR FILTRATION RATE > 60.0 (>35); GLUCOSE, FASTING 106 MG/DL (70-100); POTASSIUM SERUM 3.4 MEQ/L (3.5-5.1); SODIUM LEVEL 155 MEQ/L (136-145)
[2019-12-08] MEDS: MOM 30ML SUSPENSION UDC PO SCH (08:00)
[2019-12-08] MEDS: QUEtiapine FUMARATE 25 MG TAB PO SCH ×2 (08:00→15:58)
[2019-12-08] MEDS: DONEPEZIL 5 MG TAB PO SCH (08:00)
[2019-12-08] MEDS: SERTRALINE 100 MG TAB PO SCH (08:01)
[2019-12-08] MEDS: MULTIVITAMINS/MINERALS THERAP 1 TAB PO SCH (08:01)
--- NOTE | 2019-12-08 13:46 | IPNPDOC ---
Subjective Date Seen The patient was seen on 12/08/19. Subjective Chief Complaint/HPI no obvious pain Constitutional: Denies: Chills, Fever Eyes: Denies: Pain ENT: Denies: Head Aches, Ear Pain Skin: Denies: Rash Pulmonary: Denies: Dyspnea, Cough Cardiovascular: Denies: Chest Pain Gastrointestinal: Denies: Nausea, Vomiting Objective Physical Examination General Exam: Positive: Alert, Mild Distress (agitation); Negative: Cooperative ENT Exam: Negative: Mucous membr. moist/pink Neck Exam: Positive: Supple, JVD (6 cm) Chest Exam: Positive: Clear to auscultation, Diminished Heart Exam: Positive: Rate Normal, Normal S1, Normal S2, Murmurs (3/6 ED loudest R 1 ICS space radiating to apex) Telemetry: Positive: Sinus Abdomen Exam: Positive: Normal bowel sounds, Soft; Negative: Tenderness Extremity Exam: Negative: Edema Neuro Exam: Negative: Normal Speech Psych Exam: Negative: Mental status NL, Mood NL Assessment /Plan Problems (1) Comfort measures only status Status: Acute Problem Text: 12/07 updated Cori on status- advised could visit via [facility]-if continues to improve 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 No acute intracranial abnormality. (3) Afib Status: Chronic Problem Specific Plan: Monitor Clinically Problem Text: favor + therapeutic LMWH if stable hgb, continue to hold DOAC given continued tx requirement 12/03 tx to PCU 2 AF RVR 99; rivarox held 2 active bleeding at surgical site He has a known h/o A Fib and has been as an oupt on ASA for this presumably d/t fall risk. (4) Chronic diastolic (congestive) heart failure Status: Chronic Response to Treatment: Stable Problem Specific Plan: Monitor Clinically Problem Text: caution c preload reduction given mod-severe 12/05 [address] 12[place] [address] (9413) c mild decomp, held IVF, defer diuresis given no po intake, SBP 100-110 12/04 TTE P (5) Aortic stenosis Status: Chronic Problem Text: 03/2018 last TTE mod , mild AI c preserved EF-favor advanced now, TTE P (6) Dementia Status: Chronic Response to Treatment: Stable Problem Specific Plan: Monitor Clinically Problem Text: c acute delirium-on HD quet 25 TID, donep 10 QHS, sert 100-but not taking 2 dysphagia 12/03 required amber 2 IV prn 12/04 NH3 29 (7) Acute renal failure Status: Acute Response to Treatment: Stable, Worse Problem Specific Plan: Monitor Clinically, Repeat Labs Problem Text: back to baseline cr 1.2 12/03 49/2.9 12/03 UA -LE/nit, cathed UCX P 12/03 - B renal US/CXR (8) Acute blood loss as cause of postoperative anemia Status: Acute Response to Treatment: Worse Discussed With: Nurse Problem Specific Plan: Monitor Clinically, Repeat Labs Problem Text: 2 bleeding at surgical wound site baseline hgb 12 12/06 9.2 12/05 7.2, tx 1u 12/04 8, tx 1u 12/03 7.7, tx 1u 11/04 9.5 ordered a sitter so that the IV can be successfully maintained. (9) RUSS (obstructive sleep apnea) Status: Chronic Response to Treatment: Stable Problem Specific Plan: Monitor Clinically (10) Hip fracture, right Status: Acute Response to Treatment: Stable Problem Specific Plan: Monitor Clinically Problem Text: 12/03 AM sherman Lux (11) Sick sinus syndrome Status: Chronic Problem Text: appropriate pacer function follows with Isreal (12) CAD (coronary artery disease) Status: Chronic Response to Treatment: Stable Problem Text: no s/s active ischemia Plan/VTE VTE Prophylaxis Ordered?: Yes (anticoagulated through orthopedics) VS, I&O, 24H, Fishbone Vital Signs/I&O Vital Signs Date Time Temp Pulse Resp B/P (MAP) Pulse Ox O2 Delivery O2 Flow Rate FiO2 12/08/19 13:39 18 Nasal Cannula 1.0 12/07/19 14:00 97.5 85 125/60 (81) 98 I&O- Last 24 Hours up to 6 AM 12/08/19 05:59 Intake Total 90 ml Output Total 1150 ml Balance -1060 ml Laboratory Data 24H LABS Laboratory Tests 2 12/08/19 05:30: Immature Granulocyte % (Auto) 3.2H, Neutrophils (%) (Auto) 72.7H, Lymphocytes (% ) (Auto) 11.2L, Monocytes (%) (Auto) 12.5H, Eosinophils (%) (Auto) 0.2, Basophils (%) (Auto) 0.2, Neutrophils # (Auto) 8.0, Lymphocytes # (Auto) 1.2L, Monocytes # (Auto) 1.4H, Eosinophils # (Auto) 0.0, Basophils # (Auto) 0.0, Nucleated Red Blood Cells % (auto) 0.5H, Anion Gap 2L, Glomerular Filtration Rate > 60.0, Calcium Level 8.5L CBC/BMP Laboratory Tests 12/08/19 05:30 Microbiology Microbiology 12/04/19 Urine Culture - Final, Complete Ronnie Valadez M.D. Dec 08, 2019 13:46
[2019-12-08] MEDS: LORazepam 1 MG TAB PO PRN (15:54)
[2019-12-08] MEDS: MORPHINE 2 MG/ML 1ML VIAL (J2270) IV PRN (17:56)
[2019-12-09] MEDS: MORPHINE 2 MG/ML 1ML VIAL (J2270) IV PRN ×2 (01:04→10:30)
[2019-12-09] MEDS: MORPHINE 10MG/0.5ML ORAL CONCENTRATE SOLUTION U/D SL PRN ×6 (01:52→14:04)
[2019-12-09] MEDS: SALIVA SUBSTITUTE(MOUTHKOTE) BTL MT PRN (06:55)
--- NOTE | 2019-12-09 09:37 | ECHO ---
DATE OF SERVICE: 12/06/2019 REFERRING PROVIDER: Dr. Ronnie Valadez PATIENT LOCATION: Room 3217. REASON FOR THE STUDY: Congestive heart failure. 2D MEASUREMENTS: IVS: 1.4 cm LV: 4.6 cm LVPW: 1.4 cm LA: 4.2 cm Aorta: 3.0 cm DOPPLER MEASUREMENTS: Peak velocity across the aortic valve: 3.4 m/s Peak velocity across the LVOT: 0.7 m/s Peak gradient across the aortic valve: 47 mmHg Mean gradient across the aortic valve: 31 mmHg Maximum tricuspid valve velocity: 3.6 m/s 2D COMMENTS: 1. Mildly increased left ventricular wall thickness with normal left ventricular size and low normal global left ventricular systolic function. The estimated left ventricular systolic ejection fraction is 55-60%. 2. Mildly dilated left atrium. Mildly enlarged right atrium noted in limited views. Normal right ventricle. 3. The atrial septum appeared to be normal without evidence of defect or shunt. 4. Normal aortic root. 5. Trace pericardial effusion noted, no evidence of cardiac tamponade. 6. Moderately calcified aortic valve with decrease in leaflet excursion. Moderately calcified mitral annulus with normal anterior mitral valve leaflet motion. Normal tricuspid valve. The pulmonic valve and proximal pulmonary artery branches were not well visualized. 7. Subjectively, the inferior vena cava appeared to be mildly enlarged in limited views. DOPPLER: It detects mild aortic regurgitation, mild mitral regurgitation, mild tricuspid regurgitation. The calculated pulmonary artery systolic pressure varies between 40-50 mmHg. Assessment of the left ventricular diastolic function was limited in view of the underlying atrial fibrillation. IMPRESSION: 1. Low normal global left ventricular systolic function. The anterior septum appeared to be dyskinetic and may be related to the pacemaker. 2. Assessment of the left ventricular diastolic function was limited in view of the underlying atrial fibrillation. 3. Aortic valve sclerosis with mild aortic regurgitation and moderate aortic stenosis. 4. Mitral annulus calcification with mild mitral regurgitation and mildly enlarged left atrium. 5. Mild tricuspid regurgitation with probably moderate pulmonary hypertension. The right atrium appeared to be mildly enlarged. 6. Trace pericardial effusion. 7. 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 MTDD
[2019-12-09] MEDS: LORazepam 1 MG TAB PO PRN (10:50)
[2019-12-09] MEDS ORDERED: LORazepam 2 MG/ML VIAL (J2060) As Ordered ONE (14:00)
--- NOTE | 2019-12-09 14:03 | IPNPDOC ---
Subjective Date Seen The patient was seen on 12/09/19. Subjective Chief Complaint/HPI remains pain free Constitutional: Denies: Chills, Fever Skin: Denies: Rash Pulmonary: Denies: Dyspnea Cardiovascular: Denies: Chest Pain, Palpitations Gastrointestinal: Denies: Nausea, Vomiting Objective Physical Examination General Exam: Positive: Alert, Mild Distress (agitation); Negative: Cooperative ENT Exam: Negative: Mucous membr. moist/pink Neck Exam: Positive: Supple, JVD (6 cm) Chest Exam: Positive: Clear to auscultation, Diminished Heart Exam: Positive: Rate Normal, Normal S1, Normal S2, Murmurs (3/6 ED loudest R 1 ICS space radiating to apex) Telemetry: Positive: Sinus Abdomen Exam: Positive: Normal bowel sounds, Soft; Negative: Tenderness Extremity Exam: Negative: Edema Neuro Exam: Negative: Normal Speech Psych Exam: Negative: Mental status NL, Mood NL Assessment /Plan Problems (1) Comfort measures only status Status: Acute Problem Text: 12/08 increased Roxanol 4 to 8 q2H and + halo 1 q4H prn, discussed c PFS to tx back to [facility] 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 status-planned for 12/10 12/07 updated Cori on status- advised could visit via Facetime-if continues to improve 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 No acute intracranial abnormality. (3) Afib Status: Chronic Problem Specific Plan: Monitor Clinically Problem Text: favor + therapeutic LMWH if stable hgb, continue to hold DOAC given continued tx requirement 12/03 tx to PCU 2 AF RVR 99; rivarox held 2 active bleeding at surgical site He has a known h/o A Fib and has been as an oupt on ASA for this presumably d/t fall risk. (4) Chronic diastolic (congestive) heart failure Status: Chronic Response to Treatment: Stable Problem Specific Plan: Monitor Clinically Problem Text: caution c preload reduction given mod-severe 12/05 53018 12/[place] [address] (9413) c mild decomp, held IVF, defer diuresis given no po intake, SBP 100-110 12/04 TTE P (5) Aortic stenosis Status: Chronic Problem Text: 03/2018 last TTE mod , mild AI c preserved EF-favor advanced n ow, TTE P (6) Dementia Status: Chronic Response to Treatment: Stable Problem Specific Plan: Monitor Clinically Problem Text: c acute delirium-HD quet 25 TID, donep 10 QHS, sert 100-but not taking 2 dysphagia 12/03 required amber 2 IV prn 12/04 NH3 29 (7) Acute renal failure Status: Acute Response to Treatment: Stable, Worse Problem Specific Plan: Monitor Clinically, Repeat Labs Problem Text: back to baseline cr 1.2 12/03 49/2.9 12/03 UA -LE/nit, cathed UCX P 12/03 - B renal US/CXR (8) Acute blood loss as cause of postoperative anemia Status: Acute Response to Treatment: Worse Discussed With: Nurse Problem Specific Plan: Monitor Clinically, Repeat Labs Problem Text: 2 bleeding at surgical wound site baseline hgb 12 12/06 9.2 12/05 7.2, tx 1u 12/04 8, tx 1u 12/03 7.7, tx 1u 11/04 9.5 ordered a sitter so that the IV can be successfully maintained. (9) Hip fracture, right Status: Acute Response to Treatment: Stable Problem Specific Plan: Monitor Clinically Problem Text: 12/03 AM sp R NENO Lux (10) Sick sinus syndrome Status: Chronic Problem Text: appropriate pacer function follows with Isreal (11) CAD (coronary artery disease) Status: Chronic Response to Treatment: Stable Problem Text: no s/s active ischemia Plan/VTE VTE Prophylaxis Ordered?: Yes (anticoagulated through orthopedics) VS, I&O, 24H, Fishbone Vital Signs/I&O Vital Signs Date Time Temp Pulse Resp B/P (MAP) Pulse Ox O2 Delivery O2 Flow Rate FiO2 12/09/19 09:17 1.0 12/08/19 14:09 18 12/08/19 13:39 Nasal Cannula 12/07/19 14:00 97.5 85 125/60 (87) 98 I&O- Last 24 Hours up to 6 AM 12/09/19 06:00 Intake Total 165 ml Output Total 250 ml Balance -85 ml Laboratory Data Microbiology Microbiology 12/04/19 Urine Culture - Final, Complete Ronnie Valadez M.D. Dec 09, 2019 14:03
[2019-12-09] MEDS: LORazepam 2 MG/ML VIAL (J2060) IM PRN (14:04)
[2019-12-09] MEDS ORDERED: HALOPERIDOL 5 MG/ML VIAL (J1630) IM PRN (14:15)
[2019-12-10 06:00] VITALS: BP 125/87
[2019-12-10] MEDS: MORPHINE 10MG/0.5ML ORAL CONCENTRATE SOLUTION U/D SL PRN ×2 (16:01→23:22)
--- NOTE | 2019-12-10 16:55 | IPNPDOC ---
Subjective Date Seen The patient was seen on 12/10/19. Subjective Chief Complaint/HPI Mr. Allen is resting peacefully. Nursing reports that he is doing well with comfort measures only status. They're turning him minimally to preserve his skin but cause less pain. This was per his family's request. General: Reports: ROS Unobtainable Objective Physical Examination General Exam: Positive: No Acute Distress; Negative: Alert (rest peacefully) Psych Exam: Negative: Mental status NL, Mood NL Assessment /Plan Problems (1) Comfort measures only status Status: Acute Problem Text: 12/09 - I spoke to his daughter, Cori, on the phone and reaffi rmed his comfort measures only status. We updated his most to match his wishes as expressed by his family. Anticipate transferring him back to [facility] tomorrow. 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 12/06 given NPO c Na to 152, K 3.4; restarted /1/2NS 20KCl 75, but then per CMP, dced 12/04 given pooling meds, NPO, ST eval ordered who 12/05 recommended NPO status 12/05/19 CT head: Moderate generalized atrophy, vascular calcification, old lacunar infarct left basal ganglia. No acute intracranial abnormality. (3) Afib Status: Chronic Problem Specific Plan: Monitor Clinically Problem Text: Not being actively treated because he is comfort measures only. favor + therapeutic LMWH if stable hgb, continue to hold DOAC given continued tx requirement 12/03 tx to PCU 2 AF RVR 99; rivarox held 2 active bleeding at surgical site He has a known h/o A Fib and has been as an oupt on ASA for this presumably d/t fall risk. (4) Chronic diastolic (congestive) heart failure Status: Chronic Response to Treatment: Stable Problem Specific Plan: Monitor Clinically Problem Text: Not being actively treated because he is comfort measures only. caution c preload reduction given mod-severe 12/05 [address]6493 12[place] [address] (9413) c mild decomp, held IVF, defer diuresis given no po intake, SBP 100-110 12/04 TTE P (5) Aortic stenosis Status: Chronic Problem Text: Not being actively treated because he is comfort measures only. 03/2018 last TTE mod , mild AI c preserved EF-favor advanced now, TTE P (6) Dementia Status: Chronic Response to Treatment: Stable Problem Specific Plan: Monitor Clinically Problem Text: Not being actively treated because he is comfort measures only. c acute delirium-HD quet 25 TID, donep 10 QHS, sert 100-but not taking 2 dysphagia 12/03 required amber 2 IV prn 12/04 NH3 29 (7) Acute renal failure Status: Acute Response to Treatment: Stable, Worse Problem Specific Plan: Monitor Clinically, Repeat Labs Problem Text: Not being actively treated because he is comfort measures only. back to baseline cr 1.2 12/03 49/2.9 12/03 UA -LE/nit, cathed UCX P 12/03 - B renal US/CXR (8) Acute blood loss as cause of postoperative anemia Status: Acute Response to Treatment: Worse Discussed With: Nurse Problem Specific Plan: Monitor Clinically, Repeat Labs Problem Text: Not being actively treated because he is comfort measures only. 2 bleeding at surgical wound site baseline hgb 12 12/06 9.2 12/05 7.2, tx 1u 12/04 8, tx 1u 12/03 7.7, tx 1u 11/04 9.5 ordered a sitter so that the IV can be successfully maintained. 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
[2019-12-11] MEDS: MORPHINE 10MG/0.5ML ORAL CONCENTRATE SOLUTION U/D SL PRN ×2 (05:17→12:09)
--- NOTE | 2019-12-11 10:25 | DS.PDOC ---
Discharge Summary General Date of Admission Dec 02, 2019 at 13:48 Date of Discharge 12/11/19 Primary Care Physician: Zechariah Tidwell MD Attending Physician: Fritz Jackson MD Specialist/Consultants Involve: Curtis Wood MD Discharge Summary PROCEDURES PERFORMED DURING STAY: [None]. ADMITTING DIAGNOSES: 1. . DISCHARGE DIAGNOSES: 1. . COMPLICATIONS/CHIEF COMPLAINT: FALL. HISTORY OF PRESENT ILLNESS: . HOSPITAL COURSE: . DISCHARGE MEDICATIONS: Please see below. ALLERGIES: Please see below. PHYSICAL EXAMINATION ON DISCHARGE: VITAL SIGNS: Please see below. GENERAL: HEENT: NECK: CARDIOVASCULAR EXAMINATION: RESPIRATORY EXAMINATION: ABDOMINAL EXAMINATION: EXTREMITIES: SKIN: NEUROLOGICAL EXAMINATION: PSYCHIATRIC EXAMINATION: LABORATORY DATA: Please see below. IMAGING: PROGNOSIS: ACTIVITY: [As tolerated]. DIET: DISCHARGE PLAN: DISPOSITION: . DISCHARGE INSTRUCTIONS: 1. . ITEMS TO FOLLOWUP ON ON OUTPATIENT: 1. . DISCHARGE CONDITION: [Stable]. TIME SPENT ON DISCHARGE: Greater than minutes. Vital Signs/I&Os Vital Signs Date Time Temp Pulse Resp B/P (MAP) Pulse Ox O2 Delivery O2 Flow Rate FiO2 12/11/19 05:17 44 Nasal Cannula 1.0 12/10/19 06:00 97.8 100 125/87 (100) 96 I&O- Last 24 Hours up to 6 AM 12/11/19 06:00 Intake Total 0 ml Output Total 425 ml Balance -425 ml Microbiology Microbiology 12/04/19 Urine Culture - Final, Complete Discharge Medications Scheduled Aspirin (Aspirin EC) 81 Mg Tablet.dr, 81 MG PO DAILY, (Reported) Donepezil HCl (Donepezil HCl) 10 Mg Tablet, 10 MG PO DAILY, (Reported) Furosemide (Furosemide) 80 Mg Tab, 80 MG PO DAILY, (Reported) Multivitamins (Thera M Plus Tablet) 1 Each Tablet, 1 TAB PO DAILY, (Reported) Potassium Chloride (K-Tab ER) 20 Meq Tab, 20 MEQ PO DAILY, (Reported) Quetiapine Fumarate (Quetiapine Fumarate) 25 Mg Tablet, 25 MG PO TID, (Reported) Rivaroxaban (Xarelto) 10 Mg Tablet, 10 MG PO DAILY Sertraline HCl (Sertraline HCl) 100 Mg Tab, 100 MG PO DAILY, (Reported) Scheduled PRN Acetaminophen (Acetaminophen) 325 Mg Tablet, 650 MG PO Q4H PRN for PAIN / FEVER, (Reported) Bisacodyl (Dulcolax) 10 Mg Supp.rect, 10 MG CO DAILY PRN for CONSTIPATION, (Reported) Milk Of Magnesia (Milk of Magnesia) 2,400 Mg/10 Ml Oral.susp, 10 ML PO DAILY PRN for CONSTIPATION, (Reported) Nitroglycerin (Nitrostat) 0.4 Mg Tab.subl, 0.4 MG SL NITRO PRN for CHEST PAIN, (Reported) Oxycodone HCl/Acetaminophen (Percocet 5-325 mg Tablet) 1 Each Tablet, 1 TAB PO Q4H PRN for PAIN Sodium Phosphate,[place]-Dibasic (Enema) 133 Ml Enema, 1 SHAZIA CO DAILY PRN for CONSTIPATION, (Reported) Allergies Coded Allergies: MICHAEL Inhibitors (Verified Adverse Reaction, Mild, lotensin- cough, 08/11/19) Beta-Blockers (Beta-Adrenergic Bloc (Verified Adverse Reaction, Mild, decreased heart rate, 08/11/19) atenolol (Verified Adverse Reaction, Mild, fatigue, 10/28/19) memantine (Verified Adverse Reaction, Mild, SHAKING, 10/28/19) Fritz Jackson MD Dec 11, 2019 10:25
[2019-12-11] MEDS ORDERED: SCOP1PAT2 TOP (10:38)
[2019-12-11] MEDS ORDERED: haloperidoL IM (10:38)
[2019-12-11] MEDS ORDERED: ATIV1TAB7 PO (10:38)
[2019-12-11] MEDS ORDERED: MOUKOT60 MT (10:38)
[2019-12-11] MEDS ORDERED: ATIV2INJ5 IM (10:38)
[2019-12-11] MEDS ORDERED: HYOS125TA PO (10:38)
[2019-12-11] MEDS ORDERED: Morphine Sulfate Oral Conc. SL (10:38)
[2019-12-11] MEDS: SALIVA SUBSTITUTE(MOUTHKOTE) BTL MT PRN (12:08)
== END 2019-12-11 13:28 | DRG 480 ==
LOC: M ED 11:13 → M ED INP 13:48 → M PCU 15:22 → M MS5PR 12-03 18:07 → M PCU 12-04 11:05 → M MSPAV 12-06 18:39
PROVIDERS: ADMIT Internal Medicine; ATTEND Family Medicine
PROC: 0QS606Z Reposition Right Upper Femur with Intramedullary Internal Fixation Device, Open Approach (ICD-10-PCS; principal; 2019-12-03 08:00)
DX: S72.141A Displaced intertrochanteric fracture of right femur, initial encounter for closed fracture (principal); I50.33 Acute on chronic diastolic (congestive) heart failure; I48.20 Chronic atrial fibrillation, unspecified; D62 Acute posthemorrhagic anemia; N17.9 Acute kidney failure, unspecified; E87.0 Hyperosmolality and hypernatremia; F03.90 Unspecified dementia, unspecified severity, without behavioral disturbance, psychotic disturbance, mood disturbance, and anxiety; I25.10 Atherosclerotic heart disease of native coronary artery without angina pectoris; I35.0 Nonrheumatic aortic (valve) stenosis; Z51.5 Encounter for palliative care; Z66 Do not resuscitate; R13.10 Dysphagia, unspecified; R73.01 Impaired fasting glucose; I49.5 Sick sinus syndrome; F32.9 Major depressive disorder, single episode, unspecified; E78.5 Hyperlipidemia, unspecified; G47.33 Obstructive sleep apnea (adult) (pediatric); K57.90 Diverticulosis of intestine, part unspecified, without perforation or abscess without bleeding; W05.0XXA Fall from non-moving wheelchair, initial encounter; Y92.129 Unspecified place in nursing home as the place of occurrence of the external cause; Z79.899 Other long term (current) drug therapy; Z88.8 Allergy status to other drugs, medicaments and biological substances; Z95.0 Presence of cardiac pacemaker; Z85.828 Personal history of other malignant neoplasm of skin; Z96.653 Presence of artificial knee joint, bilateral; Z87.19 Personal history of other diseases of the digestive system; Z95.1 Presence of aortocoronary bypass graft; Z79.82 Long term (current) use of aspirin